=== PATIENT | female | born 1975 | race Caucasian/White ===

== ENCOUNTER 2023-07-10 09:22 | Emergency (ER) | payer SELFPAY ==
[2023-07-10 09:35] VITALS: BP 160/87; PULSE 74; RESP 16; TEMP 36.4; O2SAT 99
--- NOTE | 2023-07-10 09:39 | ED.URI ---
HPI - URI/Sore Throat General Chief Complaint: Upper Respiratory Infection Stated Complaint: Poss sinus infection Time Seen by Provider: 07/10/23 09:40 Source: patient and RN notes reviewed Mode of arrival: ambulatory Limitations: no limitations History of Present Illness HPI Narrative: 48-year-old female presented for complaint of sinus congestion and drainage, bilateral ear pressure, headache, and cough. Onset 2 weeks. She endorses temporary improvement in symptoms a few days ago. She has been taking Zyrtec, Benadryl, DayQuil and NyQuil, Flonase and nasal rinse. Endorses sinus infections usually with the change of seasons. MD elicited complaint: cough Related Data Home Medications Medication Instructions Recorded Confirmed levothyroxine 25 mcg tablet 25 mcg PO DAILY 03/10/19 07/10/23 bupropion HCl 150 mg 24 hr tablet, mg PO 07/10/23 extended release Allergies Allergy/AdvReac Type Severity Reaction Status Date / Time Penicillins Allergy Unknown Unknown Verified 07/10/23 09:34 peanut Allergy Anaphylaxis Verified 07/10/23 09:34 Review of Systems Review of Systems: CONSTITUTIONAL: Endorses malaise, denies chills, sweats, fever EYES: Denies visual changes, redness, or discharge ENT: Reports rhinorrhea, congestion, sinus pain, otalgia, sore throat CARDIOVASCULAR: Denies chest pain, palpitations, edema RESPIRATORY: Reports cough, post nasal drainage. Denies dyspnea GASTROINTESTINAL: Denies abdominal pain, nausea, vomiting, diarrhea SKIN: Denies rash or itching MUSCULOSKELETAL: denies myalgia PMFSH Past Medical History Medical History delivery delivered (~07/04/08) delivery delivered (~06/07/11) delivery delivered (~1993) Osteoarthritis of knee Rheumatoid arthritis Surgical History Surgical History Previous back surgery Family History Family History Grandparent Diabetes mellitus Social History Social History Smoking status: Never smoker Alcohol intake: never Exam Narrative: GENERAL: mildly Ill-appearing, nontoxic no acute distress. EYES: PERRLA, conjunctivae clear ENT: Mucous membranes moist. TMs pearly martinez with dull light reflex bilaterally; no tragal tenderness. Oropharynx not erythematous without lesions or exudate, no drooling, no hoarseness, no trismus, uvula midline. NECK: Supple. No lymphadenopathy CHEST: Clear to auscultation, breath sounds equal. No wheezing, rhonchi, rales, or stridor. No respiratory distress, speaks in full sentences. HEART: Regular rate and rhythm. No murmur heard. SKIN: Warm, dry, no rash. NEURO: Alert and oriented x3. PSYCH: Normal mood and affect Course Course Emergency Course: Patient is aware of diagnosis, understands and agrees to treatment plan. Anticipatory guidance given. Patient agrees to follow-up as directed and is aware of reasons to seek care at the emergency department. Portions of this record may have been created with voice recognition software Level of Care: Express Care Visit Vital Signs Vital signs: Vital Signs Temperature 97.6 F 07/10/23 09:35 Pulse Rate 74 07/10/23 09:35 Respiratory Rate 16 07/10/23 09:35 Blood Pressure 160/87 H 07/10/23 09:35 Pulse Oximetry 99 07/10/23 09:35 Oxygen Delivery Room Air 07/10/23 09:35 Temperature 97.6 F 07/10/23 09:35 Pulse Rate 74 07/10/23 09:35 Respiratory Rate 16 07/10/23 09:35 Blood Pressure 160/87 H 07/10/23 09:35 Pulse Oximetry 99 07/10/23 09:35 Oxygen Delivery Room Air 07/10/23 09:35 reviewed MDM - URI/Sore Throat MDM Narrative Medical decision making narrative: Discussed physical exam findings. Treatment for bacterial sinusitis. Advised supportive measures and signs/symptoms
== END 2023-07-10 10:00 | disposition home or self-care (01) ==
PROVIDERS: Emergency Provider Nurse Practitioner Family
DX: J32.9 Chronic sinusitis, unspecified (principal); M06.9 Rheumatoid arthritis, unspecified
CPT/HCPCS: 99213; G0463

== ENCOUNTER 2024-07-05 13:45 | Inpatient (IN) | payer SELFPAY ==
[2024-07-05] VITALS (10 sets, daily range): BP systolic 139–217; BP diastolic 79–131; PULSE 80–101; RESP 16–22; TEMP 36.2–36.5; O2SAT 95–100; BMI 34.0; BMI 38.0
--- NOTE | ~2024-07-05 | CT_ITS ---
EXAMINATION: CTA brain carotid DATE: 07/05/2024 16:10 INDICATION: acute infarct TECHNIQUE: Computed tomographic angiography (CTA) of the head and neck was performed with 100 mL Omni paque-350 intravenous contrast. Automated exposure control and iterative reconstruction technique wer e employed. The dose-length product was 1121.75 mGy-cm. Maximum intensity projection and volume rende red 3D-reconstructions were created by the technologist on a separate workstation. COMPARISON: CT brain, same date. FINDINGS: CTA HEAD: No large vessel occlusion, aneurysm, high flow vascular malformation, nidus or extravasation. Focal p arenchymal hypoenhancement in the left posterior frontal lobe. Patent cerebral veins CTA NECK: Aortic arch and proximal great vessels: Normal arch anatomy. Calcified lymph nodes. Right common carotid, carotid bifurcation, and internal carotid artery: No plaque.There is 0% stenosi s of the proximal right internal carotid artery relative to normal distal artery lumen diameter (NASC ET criteria). Left common carotid, carotid bifurcation, and internal carotid artery: No plaque.There is 0% stenosis of the proximal left internal carotid artery relative to normal distal artery lumen diameter (NASCET criteria). Vertebral arteries: No significant plaque or stenosis. Vertebral arteries co-dominant. Other findings: None. IMPRESSION: No large vessel intracranial occlusion, high-grade intracranial stenosis, or aneurysm. No carotid or vertebral artery occlusion, dissection, or significant stenosis. Reviewed, dictated and finalized at location K. IMPRESSION: No large vessel intracranial occlusion, high-grade intracranial stenosis, or an eurysm. No carotid or vertebral artery occlusion, dissection, or significant stenosis.
--- NOTE | ~2024-07-05 | CT_ITS ---
EXAMINATION: CT brain wo con DATE: 07/05/2024 15:19 INDICATION: AMS . TECHNIQUE: Computed tomography (CT) of the head was performed without intravenous contrast. The mA wa s adjusted according to patient size. Iterative reconstruction technique was employed. The dose-lengt h product was 605.33 mGy-cm. COMPARISON: None. FINDINGS: No acute intracranial hemorrhage or extra-axial fluid collection. No hydrocephalus, mass, or herniation. Focal area of left posterior frontal lobe parenchymal hypodensity with loss of martinez-white differentia tion. Unremarkable dural venous sinus attenuation. No acute osseous abnormality. Left maxillary retention cyst/polyp, the remaining aerated spaces are clear. IMPRESSION: Focal acute left posterior frontal lobe infarct. Results reported telephonically to Thao Markham PA-C by Dr. Rene at 3:33 PM on 07/05/2024. Reviewed, dictated and finalized at location K. IMPRESSION: Focal acute left posterior frontal lobe infarct. Results reported telephonically to Thao Markham PA-C by Dr. Rene at 3:33 PM o n 07/05/2024.
--- NOTE | ~2024-07-05 | MR_ITS ---
EXAMINATION: MR brain/brain stem wo/w con DATE: 07/06/2024 09:06 INDICATION: Acute stroke TECHNIQUE: Magnetic resonance imaging (MRI) of the brain and brainstem was performed without and with 15 mL Multihance intravenous contrast. Sequences included sagittal and axial T1-weighted SE, axial d iffusion-weighted FS SE, axial 3D SWAN, axial T2-weighted FLAIR, and axial T2-weighted FSE. Postcontr ast axial and coronal T1-weighted SE was obtained. Apparent diffusion coefficient (ADC) maps were cre ated. COMPARISON: None. FINDINGS: There is a region of restricted diffusion and increased T2 signal corresponding to the region of cyto toxic edema seen in the posterior left frontal lobe on the prior CT consistent with acute infarct. Th ere is associated luxury perfusion with subtle increased tiny enhancing vessels in the region of the infarct. No other acute infarcts identified. No intracranial hemorrhage or abnormal intracranial mass lesion. There are no intraparenchymal signal abnormalities seen on the other pulse sequences. The ve ntricles are symmetric and normal in size with normal anatomic variant cavum septum pellucidum et marcellus gae. There are no abnormal extra-axial fluid collections. Flow voids are seen in the cerebral arterie s on the T2-weighted sequences consistent with their expected patency. Visualized orbits and soft tis sues are unremarkable. Secondary luxury perfusion at the region of infarct there are no areas of abno rmal enhancement on the post contrast images. IMPRESSION: 1. Small acute infarct in the posterior left frontal lobe. Reviewed, dictated and finalized at location A.
--- OUTSIDE RECORDS SUMMARY | 2024-07-05 13:48 | XMS_ITS | Clinical Summary ---
Author Organization [facility] Address [address] [place] [address] Care Team Providers Care Commercial Real Estate Associate Name Role Phone Neftaly Elliott MD Primary Care Provider [phone] Allergies Active Allergy Reactions Criticality Noted Date Comments Peanut (Diagnostic) Anaphylaxis High 07/04/2024 Penicillins Unknown 07/04/2024 Medications levothyroxine (SYNTHROID) 25 MCG tablet Take 1 tablet (25 mcg total) by mouth every morning. 04/18/2024 Active Encounters Date Type Department Care Team Description 07/04/2024 9:17 PM CDT - 07/04/2024 10:50 PM CDT Emergency [facility] Emergency Services [address] [place] [address] [address] Garcia, Stress; Psychiatric Problem Discharge Disposition: Home or Self Care (Routine Discharge) 07/04/2024 Travel 05/08/2024 8:15 AM ENTRY EXAMINER - 05/08/2024 11:59 PM ENTRY EXAMINER Hospital Encounter [facility] Mammography [address] [place] [address] Jah Faria MD Discharge Disposition: Home or Self Care (Routine Discharge) 05/08/2024 Travel from Last 3 Months Family History Medical History Relation Comments Breast Cancer Maternal Aunt Breast Cancer Other Relation Status Comments Maternal Aunt Other Alive Social History Tobacco Use Types Packs/Day Years Used Date Smoking Tobacco: Never Smokeless Tobacco: Never Tobacco Cessation:Counseling Given: Not Answered Alcohol Use Standard Drinks/Week Comments Never 0 (1 standard drink = 0.6 oz pur e alcohol) Comments No Sex and Gender Information Value Date Recorded Sex Assigned at Female 05/01/2024 12:53 PM ENTRY EXAMINER Legal Sex Female 4:08 PM CDT Gender Identity Not on file Sexual Orientation Not on file Last Filed Vital Signs Vital Sign Reading Time Taken Comments Blood Pressure 191/94 07/04/2024 10:46 PM CDT Pulse 76 07/04/2024 10:46 PM CDT Temperature 36.7 C (98 F) 07/04/2024 9:25 PM CDT Respiratory Rate 18 07/04/2024 9:25 PM CDT Oxygen Saturation 98% 07/04/2024 9:25 PM CDT Inhaled Oxygen Concentration - - Weight 99.8 kg (220 lb) 07/04/2024 9:59 PM CDT Height 175.3 cm (5' 9 ) 07/04/2024 9:59 PM CDT Body Mass Index 32.49 07/04/2024 9:59 PM CDT Plan of Treatment Health Maintenance Due Date Last Done Comments Cervical Cancer Screening Pap Smear (Age 30 to 64) Every 3 Years 1977 Colorectal Cancer Screening Colonoscopy (10 Years) 1977 Annual Physical 1980 Hepatitis B Vaccines (1 of 3 - 19+ 3-dose series) 1996 DTaP, Tdap and Td Vaccines (2 - Td or Tdap) 05/23/2021 05/24/2011 Cervical Cancer Screening Pap with HPV Testing (Age 30 to 64) Every 5 Years 08/21/2022 08/21/2017 Cervical Cancer Screening with HPV 08/21/2022 COVID-19 Vaccine ( season) 2023 07/28/2021, 02/18/2021, 06/30/2020, Additional history exists Mammogram Screening 05/08/2026 05/08/2024, 05/23/2023, 04/22/2023, Additional history exists Hepatitis C Completed 01/15/2018 Meningococcal B Vaccine Aged Out No l onger eligible based on patient's age to complete this topic Meningococcal Vaccine Aged Out No mary zahra eligible based on patient's age to complete this topic Pneumococcal Vaccine: Pediatrics (0 to 5 Years) and At-Risk Patients (6 to 49 Years) Aged Out No longer eligible based on patient's age to complete this topic RSV Immunizations Under 20 Months Aged Out No longer eligible based on patient's age to complete this topic Procedures Procedure Name Priority Date/Time Associated Diagnosis Comments MG SCREENING W ALICIA THERESA DIGI Routine 05/08/2024 8:47 AM ENTRY EXAMINER Encounter for screening mammogram for malignant neoplasm of breast HEPATITIS C ANTIBODY Routine 01/15/2018 5:18 PM CDT HPV MRNA E6/E7 Routine 08/21/2017 4:54 PM CDT from Last 3 Months or Most Recently Relevant to Health Maintenance Results * MG SCREENING W ALICIA THERESA DIGI (05/08/2024 8:47 AM ENTRY EXAMINER) Anatomical Region Laterality Modality Breast Bilateral Mammography 05/08/2024 10:3 1 AM ENTRY EXAMINER Impressions 05/08/2024 10:38 AM ENTRY EXAMINER ===== IMPRESSION: ===== 1. Stable mammographic appearance with no new findings to suggest malignancy in either breast. Assessment: ACR BI-RADS 1 - NEGATIVE Recommendation: 1:Routine Screening Bilateral Comments: Ordered By: JAH FARIA Interpreted By: Abdi Larson, 05/08/2024 10:31 AM Narrative 05/08/2024 10:38 AM ENTRY EXAMINER [address] [place] [address] EXAMINATION: Digital bilateral screening mammogram with 3-D tomosynthesis EXAM DATE/TIME: 05/08/2024 8:35 AM REASON FOR EXAM: Screening Breast carcinoma in maternal aunt at unknown age. COMPARISON: 02/19/2022. 04/22/2023 Technique: Digital screening mammography of both breasts was performed in addition to 3-D Tomosynthesis technique. This study was read with the assistance of a computer-aided detection system. Tissue density: There are scattered areas of fibroglandular density. Findings: There is no new focal asymmetry, dominant mass lesion, area of skin thickening, or cluster of suspicious appearing calcifications in either breast to suggest malignancy. Jah Faria MD MAMMO Final Resul t * HEPATITIS C ANTIBODY (01/15/2018 5:18 PM CDT) Pathologist [facility] HEPATITIS C AB NON-REACTI VE NON-REACTI VE 01/16/2018 3:01 PM CDT [facility] SERUM OR PLASMA SPECIMEN / Unknown 01/15/2018 5:18 PM CDT 01/15/2018 6:34 PM CDT Generic Conversion Md [facility] Final R esult [facility] [address] [place] [address], * HPV MRNA E6/E7 (08/21/2017 4:54 PM CDT) Pathologist [facility] HPV MRNA E6/E7 Not Detected NOT DETECTED 08/24/2017 3:11 PM CDT Local Plant Source TALIA SPENCER Comment: This test was performed using the APTIMA(R) HPV Assay([employer]This assay detects E6/E7 viral messenger RNA (mRNA)from 14 high-risk HPV types (16,18,31,33,35,39,45,51,52,56,58,59,66,68).For additional information please refer to:http://education.Trover.MyScreen/faq/CKO850i3(This link is being provided for informational/educational purposes only.)The analytical performance characteristics of thisassay have been determined by [employer] [place], [place]. The modificationshave not been cleared or approved by the FDA. Thisassay has been validated pursuant to the CLIAregulations and is used for clinical purposes.Test Performed by [facility],[address] [place] [id number] Dodge M.D., Ph.D., Director of [phone], [facility] [id number] FLUID SPECIMEN / Unknown 08/21/2017 4:54 PM CDT 08/21/2017 4:54 PM CDT us Generic Conversion Md [facility] NITZA WOOD Final Result Performing Organization Address City/State/[facility] Phone Number Local Plant Source [facility] [address] [place] [address], [place] [phone] from Last 3 Months or Most Recently Relevant to Health Maintenance Care Teams Commercial Real Estate Associate Relationship Specialty Start Date End Date Neftaly Elliott MD [address] [place] [address] PCP - General FAMILY PRACTICE 09/01/18
--- OUTSIDE RECORDS SUMMARY | 2024-07-05 13:48 | XMS_ITS | Encounter Summary ---
Author Organization [facility] Address [address] [place] [address] Care Team Providers Care Gravity Prospecting Operator Name Role Phone Neftaly Elliott MD Primary Care Provider [phone] Encounter Details Date Type Department Care Team (Latest Contact Info) Description 07/04/2024 Travel Social History Tobacco Use Types Packs/Day Years Used Date Smoking Tobacco: Never Smokeless Tobacco: Never Alcohol Use Standard Drinks/Week Comments Never 0 (1 standard drink = 0.6 oz pur e alcohol) Comments No Sex and Gender Information Value Date Recorded Sex Assigned at Female 05/01/2024 12:53 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 Wish to be (Past 1 Month) No 07/04/2024 9:54 PM CDT Marizol Woodard RN Active 2. Non-Specific Active Suicidal Thoughts (Past 1 Month) No 07/04/2024 9:54 PM CDT Marizol Woodard RN Active 6. Suicidal Behavior (Lifetime) No 07/04/2024 9:54 PM CDT Marizol Woodard RN Active documented as of this encounter Plan of Treatment Not on file documented as of this encounter Visit Diagnoses Not on filedocumented in this encounter Care Teams Gravity Prospecting Operator Relationship Specialty Start Date End Date Neftaly Elliott MD [address] [place] [address] PCP - General FAMILY PRACTICE 09/01/18 documented as of this encounter
--- OUTSIDE RECORDS SUMMARY | 2024-07-05 13:48 | XMS_ITS | Clinical Summary ---
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 Gender Identity Not on file Sexual Orientation Not on file Plan of Treatment Health Maintenance Due Date Last Done Comments Hepatitis C Virus (HCV) Screening 1977 TdaP Immunization 1977 Hepatitis B Immunization (1 of 3 - 19+ 3-dose series) 1996 Pap Smear 1998 Cervical Cancer Screening (CCS) 2007 HPV/Cotest 2007 Discussion re Starting/Frequ ency of Mammograms 2017 Colonoscopy 2022 Colorectal Cancer Screening 2022 Influenza Immunization (#1) 2023 SARS-COV-2 Immunization ( season) 2023 Respiratory Syncytial Virus (RSV) Immunization (Adult) (1 - 1-dose 75+ series) 2052 Meningococcal Immunization (ACWY) Aged Out No longer eligible based on patient's age to complete this topic Pneumococcal Immunization Combined Aged Out No longer eligible based on patient's age to complete this topic Rotavirus Immunization Aged Out No lo nger eligible based on patient's age to complete this topic
--- OUTSIDE RECORDS SUMMARY | 2024-07-05 13:48 | XMS_ITS | Encounter Summary ---
Author Organization [facility] Address [address] [place] [address] Care Team Providers Care Metal Molder Name Role Phone Neftaly Elliott MD Primary Care Provider [phone] Reason for Visit * Reason Comments Stress Psychiatric Problem Encounter Details Date Type Department Care Team (Late st Contact Info) Description 07/04/2024 9:17 PM CDT - 07/04/2024 10:50 PM CDT Emergency [facility] Emergency Services [address] [place] [address] [place] [address] Lane Kraus, DO [address] [place] [id number] Stress; Psychiatric Problem Discharge Disposition: Home or Self Care (Routine Discharge) Social History Tobacco Use Types Packs/Day Years Used Date Smoking Tobacco: Never Smokeless Tobacco: Never Tobacco Cessation:Counseling Given: Not Answered Alcohol Use Standard Drinks/Week Comments Never 0 (1 standard drink = 0.6 oz pur e alcohol) Comments No Sex and Gender Information Value Date Recorded Sex Assigned at Female 05/01/2024 12:53 PM ASSISTANCE SPECIALIST Legal Sex Female 4:08 PM CDT Gender Identity Not on file Sexual Orientation Not on file documented as of this encounter Last Filed Vital Signs Vital Sign Reading [...] Mass Index 32.49 07/04/2024 9:59 PM CDT documented in this encounter Functional Status * Calculated C-SSRS Risk Score (Lifetime/Recent) Answer Date of Assessment Author Status No Risk Indicated 07/04/2024 9:54 PM CDT Marizol Woodard RN Active * [place] Suicide Severity Rating Scale (Screener/Recent Self-Report) Question [...] RN Active documented as of this encounter Discharge Instructions * Attachments The following attachments cannot be sent through Care Everywhere. * Coping with stress (Citizen [place]) documented in this encounter Medications at Time of Discharge levothyroxine (SYNTHROID) 25 MCG tablet Take 1 tablet (25 mcg total) by mouth every morning. 04/18/2024 documented as of this encounter ED Notes * Marizol Woodard RN - 07/04/2024 10:50 PM CDT Calm et cooperative with staff et care, no acute distress at discharge, a/o x3 * Marizol Woodard RN - 07/04/2024 10:19 PM CDT Drinking water et conversant with friends in room, calm * Marizol Woodard RN - 07/04/2024 9:45 PM CDT Here for evaluation at this time with c/o I just can't function pt tearful et anxious upon arrival to er, brought by friends alexys after having a panic attack/breatkdown after a hinduism service this evening, pt friend reports ongoing difficult divorce past couple years, increased stress r/t from her x2 children et work, difficulty sleeping, losing insurance et sig decrease in being able to function , family friend reports significant worsening in overall mental health from stress et anxiety, pt has difficulty concentrating et answering intake questions from rn, pt adamently denies SI etHI, no pmd, receives care yearly through obgyn * Lane Kraus, - 07/04/2024 9:[address] PM CDT [facility] Emergency Department Note Chief Complaint Chief Complaint Patient presents with Stress Psychiatric Problem History of Present Illness Ms. Peck presents to the emergency department accompanied by a friend after experiencing difficulty with recall while at hinduism this evening. Yesterday, she had similar symptoms which she attributed to severe stress related to marital discord and her teenage daughters. While at [facility], a friend made a comment which threw her into a panic attack which was followed by delayed responsiveness to questions. This caused her friends to be concerned and they bring her to the emergency department for evaluation. Ms. Peck denies any life stressors except for family related issues. She is currently undergoing a divorce. She is seeing a counselor every other week at [facility] and she feels this is helpful. She has an extensive network of friends who monitor her and support her on a regular basis. Ms. Peck denies any financial strain, work-related stress, or other stressors. She denies any thoughts of self-harm or harm to others. Medical History ALLERGIES: Review of patient's allergies indicates: Allergen Reactions Peanut (Diagnostic) Anaphylaxis Penicillins Unknown MEDICATIONS: Prior to Admission medications Medication Sig Start Date End Date Taking? Authorizing Provider levothyroxine (SYNTHROID) 25 MCG tablet Take 1 tablet (25 mcg total) by mouth every morning. 04/18/24 Yes Default History Genericprovider PAST MEDICAL HISTORY: Past Medical History: Diagnosis Date Disease of thyroid gland Dyslexia PAST SURGICAL HISTORY: Past Surgical History: Procedure Laterality Date SECTION X2 FAMILY HISTORY: Family History Problem Relation Name Age of Onset Breast Cancer Maternal Aunt Breast Cancer Other cousin SOCIAL HISTORY: Social History Tobacco Use Smoking status: Never Smokeless tobacco: Never Substance Use Topics Alcohol use: Never Drug use: Never Review of Systems Review of Systems Psychiatric/Behavioral: Positive for decreased concentration and dysphoric mood. The patient is nervous/anxious. Physical Exam Filed Vitals: 07/04/24 2125 07/04/24 2159 BP: (!) 175/150 Pulse: 90 Resp: 18 Temp: 98 ??F (36.7 ??C) TempSrc: Temporal SpO2: 98% Weight: 99.8 kg (220 lb) Height: 1.753 m (5' 9 ) Physical Exam Vitals and nursing note reviewed. Constitutional: General: She is not in acute distress. Appearance: She is not ill-appearing or toxic-appearing. HENT: Head: Normocephalic and atraumatic. Nose: Nose normal. Cardiovascular: Rate and Rhythm: Normal rate. Pulmonary: Effort: Pulmonary effort is normal. Musculoskeletal: General: Normal range of motion. Cervical back: Normal range of motion. Skin: General: Skin is warm. Neurological: Mental Status: She is alert. Psychiatric: Attention and Perception: Attention normal. Mood and Affect: Affect is blunt. Speech: Speech normal. Behavior: Behavior normal. Behavior is cooperative. Thought Content: Thought content normal. Cognition and Memory: Cognition normal. Judgment: Judgment normal. Diagnostic Studies / Procedures ELECTROCARDIOGRAMS: No results found for this visit on 07/04/24. LABORATORY STUDIES: No results found for this visit on 07/04/24. IMAGING STUDIES No orders to display ED Course / Medical Decision Making Medical Decision Making Vital signs reviewed-hypertension noted disease (asymptomatic). She is nontoxic and well-hydrated appearing. Physical exam is unremarkable. Extensive interview and discussion in the emergency department in the presence of a close friend. She has no SI or HI and her responsiveness to questions improved with time in the emergency department. Recall is slightly delayed, however there is no confusion. Distraction techniques and redirection techniques were reviewed with her in the emergency department to cope with life stressors. Due to her return to baseline following a panic attack she was discharged in good stable condition in the custody of family and friends. She was encouraged to continue therapy with [facility]. She is advised to return the emerged part for any sudden change in current condition. Amount and/or Complexity of Data Reviewed Independent Historian: friend Medications - No data to display Clinical Impression Acute fugue state due to acute stress reaction (Primary) Current Discharge Medication List Disposition: Discharge Follow-Up: Neftaly Elliott MD [address] [place] [id number] KRAUS DO 07/04/2024 Lane Kraus DO 07/04/24 2237 documented in this encounter Plan of Treatment Not on file documented as of this encounter Visit Diagnoses Diagnosis Acute fugue state due to acute stress reaction- Primary Predominant disturbance of consciousness as reaction to stress documented in this encounter Care Teams Metal Molder Relationship Specialty Start Date End Date Neftaly Elliott MD [address] [place] [id number] PCP - General FAMILY PRACTICE 09/01/18 documented as of this encounter
--- NOTE | 2024-07-05 14:06 | ECG_ITS ---
Test Date: 2024-07-05 14:41:36 Measurements Intervals [place] Rate: 79 P: 48 CA: 185 QRS: -8 QRSD: 91 T: 26 QT: 353 QTc: 406 Interpretive Statements SINUS RHYTHM VOLTAGE CRITERIA FOR LVH BORDERLINE R WAVE PROGRESSION, ANTERIOR LEADS BASELINE ARTIFACT- I, II, III, AVR, AVL, AVF BORDERLINE ECG No previous ECG available for comparison Electronically Signed On 07-05-2024 14:52:30 CDT by Anupam Coreas D.O.
--- OUTSIDE RECORDS SUMMARY | 2024-07-05 14:12 | XMS_ITS | Clinical Summary ---
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
--- OUTSIDE RECORDS SUMMARY | 2024-07-05 14:12 | XMS_ITS | Clinical Summary ---
Author Organization [facility] Address [address] [place] [address] Care Team Providers Care Tunnel Kiln Repairer Name Role Phone Neftaly Elliott MD Primary Care Provider [phone] Allergies Active Allergy Reactions Criticality Noted Date Comments Peanut (Diagnostic) Anaphylaxis High 07/04/2024 Penicillins Unknown 07/04/2024 Medications levothyroxine (SYNTHROID) 25 MCG tablet Take 1 tablet (25 mcg total) by mouth every morning. 04/18/2024 Active Encounters Date Type Department Care Team Description 07/04/2024 9:17 PM CDT - 07/04/2024 10:50 PM CDT Emergency [facility] Emergency Services [address] [place] [address] Lane Garcia, Stress; Psychiatric Problem Discharge Disposition: Home or Self Care (Routine Discharge) 07/04/2024 Travel 05/08/2024 8:15 AM PHYSICAL THERAPIST CLINIC DIRECTOR - 05/08/2024 11:59 PM PHYSICAL THERAPIST CLINIC DIRECTOR Hospital Encounter [facility] Mammography [address] [place] [address] Jah Faria MD Discharge Disposition: Home or [...] Sex Assigned at Female 05/01/2024 12:53 PM PHYSICAL THERAPIST CLINIC DIRECTOR Legal Sex Female 4:08 PM CDT Gender [...] ALICIA THERESA DIGI Routine 05/08/2024 8:47 AM PHYSICAL THERAPIST CLINIC DIRECTOR Encounter for screening mammogram for malignant neoplasm of breast HEPATITIS C ANTIBODY Routine 01/15/2018 5:18 PM CDT HPV MRNA E6/E7 Routine 08/21/2017 4:54 PM CDT from Last 3 Months or Most Recently Relevant to Health Maintenance Results * MG SCREENING W ALICIA THERESA DIGI (05/08/2024 8:47 AM PHYSICAL THERAPIST CLINIC DIRECTOR) Anatomical Region Laterality Modality Breast Bilateral Mammography 05/08/2024 10:3 1 AM PHYSICAL THERAPIST CLINIC DIRECTOR Impressions 05/08/2024 10:38 AM PHYSICAL THERAPIST CLINIC DIRECTOR ===== IMPRESSION: ===== 1. Stable mammographic appearance with no new findings to suggest malignancy in either breast. Assessment: ACR BI-RADS 1 - NEGATIVE Recommendation: 1:Routine Screening Bilateral Comments: Ordered By: JAH FARIA Interpreted By: Abdi Larson, 05/08/2024 10:31 AM Narrative 05/08/2024 10:38 AM PHYSICAL THERAPIST CLINIC DIRECTOR [address] [place] [address] EXAMINATION: Digital bilateral screening mammogram with 3-D [...] C ANTIBODY (01/15/2018 5:18 PM CDT) Pathologist [facility] HEPATITIS C AB NON-REACTI VE NON-REACTI VE 01/16/2018 3:01 PM CDT [facility] SERUM OR PLASMA SPECIMEN / Unknown 01/15/2018 5:18 PM CDT 01/15/2018 6:34 PM CDT Generic Conversion Md [facility] Final R esult [facility] [address] [place] [address], * HPV MRNA E6/E7 (08/21/2017 4:54 PM CDT) Pathologist [facility] HPV MRNA E6/E7 Not Detected NOT DETECTED 08/24/2017 3:11 PM CDT [facility] TALIA SPENCER Comment: This test was performed using the APTIMA(R) HPV Assay([employer]This assay detects E6/E7 viral messenger RNA (mRNA)from 14 high-risk HPV types (16,18,31,33,35,39,45,51,52,56,58,59,66,68).For additional information please refer to:http://education.Zoom.AccuRev/faq/IWC285q5(This link is being provided for informational/educational purposes only.)The analytical performance characteristics of thisassay have been determined by [place]. The modificationshave not been cleared or approved by the FDA. Thisassay has been validated pursuant to the CLIAregulations and is used for clinical purposes.Test Performed by [facility],Winestyr Paige [facility],[address] [place] [id number] Dodge M.D., Ph.D., Director of [phone], [facility] [id number] FLUID SPECIMEN / Unknown 08/21/2017 4:54 PM CDT 08/21/2017 4:54 PM CDT us Generic Conversion Md [facility]/CYTOLOGY NITZA WOOD Final Result Performing Organization Address City/State/[facility] Phone Number [facility] [address] [place] [address], [place] [phone] from Last 3 Months or Most Recently Relevant to Health Maintenance Care Teams Tunnel Kiln Repairer Relationship Specialty Start Date End Date Neftaly Elliott MD [address] [place] [id number] PCP - General FAMILY PRACTICE 09/01/18
--- OUTSIDE RECORDS SUMMARY | 2024-07-05 14:12 | XMS_ITS | Encounter Summary ---
Author Organization [facility] Address [address] [place] [address] Care Team Providers Care Cook Short Order Name Role Phone Neftaly Elliott MD Primary Care Provider [phone] Reason for Visit * Reason Comments Stress Psychiatric Problem Encounter Details Date Type Department Care Team (Late st Contact Info) Description 07/04/2024 9:17 PM CDT - 07/04/2024 10:50 PM CDT Emergency [facility] Emergency Services [address] [place] [address] [place] [address] Lane Kraus, DO [address] [place] [address] [phone] Stress; Psychiatric Problem Discharge Disposition: Home or Self Care (Routine Discharge) Social History Tobacco Use Types Packs/Day Years Used Date Smoking Tobacco: Never Smokeless Tobacco: Never Tobacco Cessation:Counseling Given: Not Answered Alcohol Use Standard Drinks/Week Comments Never 0 (1 standard drink = 0.6 oz pur e alcohol) Comments No Sex and Gender Information Value Date Recorded Sex Assigned at Female 05/01/2024 12:53 PM TRAILER PARK MANAGER Legal Sex Female 4:08 PM CDT Gender [...] PM CDT Marizol Woodard RN Active * [place] Suicide Severity Rating Scale (Screener/Recent Self-Report) Question [...] through Care Everywhere. * Coping with stress (Kittitian) documented in this encounter Medications at Time [...] after having a panic attack/breatkdown after a christian service this evening, pt friend reports ongoing [...] Lane Kraus, - 07/04/2024 9:22 PM CDT [facility] Emergency Department Note Chief Complaint Chief Complaint Patient presents with Stress Psychiatric Problem History of Present Illness Ms. Peck presents to the emergency department accompanied by a friend after experiencing difficulty with recall while at christian this evening. Yesterday, she had similar symptoms which she attributed to severe stress related to marital discord and her teenage daughters. While at [facility], a friend made a comment which threw her into a panic attack which was followed by delayed responsiveness to questions. This caused her friends to be concerned and they bring her to the emergency department for evaluation. Ms. Peck denies any life stressors except for family related issues. She is currently undergoing a divorce. She is seeing a counselor every other week at [facility] and she feels this is helpful. She [...] List Disposition: Discharge Follow-Up: Neftaly Elliott MD [address] [place] [id number] KRAUS DO 07/04/2024 Lane Kraus DO 07/04/24 [id number] documented in this encounter Plan of Treatment Not on file documented as of this encounter Visit Diagnoses Diagnosis Acute fugue state due to acute stress reaction- Primary Predominant disturbance of consciousness as reaction to stress documented in this encounter Care Teams Cook Short Order Relationship Specialty Start Date End Date Neftaly Elliott MD [address] [place] [id number] PCP - General FAMILY PRACTICE 09/01/18 documented as of this encounter
--- OUTSIDE RECORDS SUMMARY | 2024-07-05 14:12 | XMS_ITS | Encounter Summary ---
Author Organization [facility] Address [address] [place] [address] Care Team Providers Care Wheel Setter Name Role Phone Neftaly Elliott MD Primary Care Provider [phone] Encounter Details Date Type Department Care Team (Latest Contact Info) Description 07/04/2024 Travel Social History Tobacco Use Types Packs/Day Years Used Date Smoking Tobacco: Never Smokeless Tobacco: Never Alcohol Use Standard Drinks/Week Comments Never 0 (1 standard drink = 0.6 oz pur e alcohol) Comments No Sex and Gender Information Value Date Recorded Sex Assigned at Female 05/01/2024 12:53 PM JELLY MAKER Legal Sex Female 4:08 PM CDT Gender Identity Not on file Sexual Orientation Not on file documented as of this encounter Functional Status * Calculated C-SSRS Risk Score (Lifetime/Recent) Answer Date of Assessment Author Status No Risk Indicated 07/04/2024 9:54 PM CDT Marizol Woodard RN Active * [place] Suicide Severity Rating Scale (Screener/Recent Self-Report) Question [...] on filedocumented in this encounter Care Teams Wheel Setter Relationship Specialty Start Date End Date Neftaly Elliott MD [address] [place] [address] PCP - General FAMILY PRACTICE 09/01/18 documented as of this encounter
--- NOTE | 2024-07-05 14:20 | ED_ITS ---
HPI - Neuro Symptoms/Deficit General Chief Complaint: Neuro Symptoms/Deficit Stated Complaint: Feeling disoriented-having trouble with words Time Seen by Provider: 07/05/24 14:06 Source: patient Mode of arrival: ambulatory Limitations: no limitations History of Present Illness HPI Narrative: This is a 49 year old female that presents to the ER for confusion. Reports since Saturday she has had difficulty finding her words. She felt like she was not able to take her work calls that day as she was so confused. Reports today she noted that her blood pressure was elevated which prompted her to be seen. Denies vision changes, focal numbness, or weakness. Related Data Home Medications ?Medication ?Instructions ?Recorded ?Confirmed ?Last Taken ?Type levothyroxine 25 mcg tablet 25 mcg PO DAILY 03/10/19 07/10/23 Unknown History bupropion HCl 150 mg 24 hr tablet, mg PO 07/10/23 Unknown History extended release Allergies Allergy/AdvReac Type Severity Reaction Status Date / Time Penicillins Allergy Unknown Unknown Verified 07/05/24 13:47 peanut Allergy Anaphylaxis Verified 07/05/24 13:47 Review of Systems 2 Review of Systems: CONSTITUTIONAL: Denies fever EYES: Denies visual changes CARDIOVASCULAR: Denies chest pain RESPIRATORY: Denies dyspnea. GASTROINTESTINAL: Denies vomiting NEUROLOGIC: Denies numbness, or weakness. All systems reviewed & are unremarkable except as noted in HPI and below PMFSH Past Medical History Medical History (Updated 07/05/24 @ 16:39 by Thao Markham PA-C) History of depression History of hypothyroidism Osteoarthritis of knee Rheumatoid arthritis delivery delivered (~1993) delivery delivered (~06/07/11) delivery delivered (~07/04/08) Surgical History Surgical History Previous back surgery Family History Family History Grandparent Diabetes mellitus Social History Social History Smoking status: Never smoker Alcohol intake: never Exam 2 Narrative: GENERAL: Well-appearing, well-nourished, and in no acute distress. HEAD: Normocephalic, atraumatic. EYES: PERRLA and EOMI. ENT: Nares clear, no rhinorrhea or epistaxis. Mucous membranes moist. Oropharynx without tonsillar hypertrophy exudate or other lesions. Bilateral TMs pearly martinez non-bulging NECK: Supple. No adenopathy or masses. CHEST: Clear to auscultation. No respiratory distress. No wheezes rales or rhonchi HEART: Regular rate and rhythm. No murmur heard. Normal peripheral pulses. EXTREMITIES: Normal range of motion. No edema. Strength equal bilateral upper and lower extremities (5/5) SKIN: Warm, dry, no rash. NEURO: No focal deficits. Alert and oriented x3. Cranial nerves 2-12 grossly intact PSYCH: Anxious, tearful Course Course Emergency Course: Patient updated on her workup and need for admission Consultations Consultation #1: Spoke with Dr. Green about patient and workup. Recommend CTA. Lipitor, dual anti-platelet therapy Date: 07/05/24 Consultation #2: Spoke with hospitalist about patient and workup who accepts admission Date: 07/05/24 Vital Signs Vital signs: Vital Signs Temperature 97.2 F L 07/05/24 13:48 Pulse Rate 90 07/05/24 13:48 Respiratory Rate 16 07/05/24 13:48 Blood Pressure 167/100 H 07/05/24 13:48 Pulse Oximetry 100 07/05/24 13:48 Oxygen Delivery Room Air 07/05/24 13:48 Temperature 97.2 F L 07/05/24 13:48 Pulse Rate 89 07/05/24 16:32 Respiratory Rate 16 07/05/24 16:32 Blood Pressure 169/89 H 07/05/24 16:32 Pulse Oximetry 98 07/05/24 16:32 Oxygen Delivery Room Air 07/05/24 14:02 MDM - Neuro Symptoms/Deficit MDM Narrative Medical decision making narrative: Patient presents to the emergency department for word-finding difficulties. Ongoing over the last 2 days. Patient hypertensive upon arrival with systolic blood pressure in the 200s, this down trended without intervention. Systolic blood pressure now in the 160s. No focal deficits noted on exam. CBC and metabolic panel without concerning findings. Urine without evidence of infection. CT brain shows focal acute left posterior frontal lobe infarct. Spoke with Dr. Green about patient and workup. Recommend CTA. Lipitor, dual anti-platelet therapy. Spoke with hospitalist about patient and workup who accepts admission. Patient updated on her workup and need for admission Differential Diagnosis Differential diagnosis: Likely subarachnoid hemorrhage, cerebrovascular accident and other (Anxiety, depression, hypertension, hypertensive urgency) Lab Data Attestation: I reviewed the patient's lab results. 07/05/24 14:36 07/05/24 14:36 Labs: Lab Results 07/05/24 07/05/24 Range/Units 14:34 14:36 WBC 7.4 (4.5-10.0) K/mm3 RBC 4.53 (4.2-5.4) M/mm3 Hgb 12.8 (12.0-15.0) g/dL Hct 39.2 (37.0-47.0) % MCV 86.5 (80-100) fl MCH 28.3 (26-34) pg MCHC 32.7 (32-36) g/dl RDW 13.3 (11.5-14.5) % Plt Count 370 (150-375) k/mm3 MPV 9.3 (7.4-10.4) fl Immature Gran % (Auto) 0.4 (0-0.5) % Neut % (Auto) 55.0 (45.5-73.1) % Lymph % (Auto) 29.3 (18.3-44.2) % [place] % (Auto) 11.6 H (2.6-8.5) % Eos % (Auto) 2.8 (0-4.4) % Baso % (Auto) 0.9 (0.2-1.2) % Lymph # (Auto) 2.17 (0.9-3.2) K/mm3 [place] # (Auto) 0.9 H (0.1-0.6) K/mm3 Eos # (Auto) 0.2 (0-0.3) K/mm3 Baso # (Auto) 0.1 (0.0-0.1) K/mm3 Abs Immat Gran (auto) 0.03 (0.00-0.031) K/mm3 Absolute Neuts (auto) 4.1 (1.3-6.7) K/mm3 Absolute Nucleated RBC 0.000 (0.0-0.012) K/mm3 Nucleated RBC % 0.0 (0.0-0.2) % PT 13.2 (11.1-14.7) Seconds INR 1.0 APTT 26.8 (22.3-36.8) Seconds Sodium 137 (137-145) mmol/L Potassium 3.9 (3.4-5.0) mmol/L Chloride 103 (98-107) mmol/L Carbon Dioxide 26 (22-30) mmol/L Anion Gap 8 (4-12) mmol/L BUN 12 (7-17) mg/dL Creatinine 0.68 L (0.7-1.0) mg/dL Estim Creat Clear Calc 113 ml/min Estimated GFR > 60 (59 - ) Glucose 119 H (65-110) mg/dL Calcium 9.1 (8.4-10.2) mg/dL Total Bilirubin 0.7 (0.2-1.3) mg/dL AST 31 (14-36) U/L ALT 32 (6-35) U/L Alkaline Phosphatase 60 (38-126) U/L Total Protein 8.0 (6.3-8.2) g/dL Albumin 4.4 (3.5-5.1) g/dL Urine Color Yellow (Yellow) Urine Appearance Clear (Clear) Urine pH 7.5 (5.0-9.0) Ur Specific [place] 1.015 (1.001-1.035) Urine Protein Negative (Negative) mg/dL Urine Glucose (UA) Trace H (Negative) mg/dL Urine Ketones Negative (Negative) mg/dL Ur Blood (Man) Negative (Negative) Urine Nitrate Negative (Negative) Urine Bilirubin Negative (Negative) Urine Urobilinogen 0.2 (<2.0) mg/dL Leukocyte Esterase Rfl Negative (Negative) GIGI/UL POC Urine HCG, Qual Negative (Negative) Imaging Data Radiologist's impression: ITS Impressions Head CT 07/05/24 15:28 IMPRESSION: Focal acute left posterior frontal lobe infarct. Results reported telephonically to Thao Markham PA-C by Dr. Rene at 3:33 PM on 07/05/2024. Head/Neck CTA 07/05/24 16:26 IMPRESSION: No large vessel intracranial occlusion, high-grade intracranial stenosis, or aneurysm. No carotid or vertebral artery occlusion, dissection, or significant stenosis. ECG Data EKG #1: ECG completion date: 07/05/24 EKG Interpretation: normal rate, sinus rhythm, no ST changes and normal QT Critical Care Time Critical Care Time Critical Care Time: Yes Total Critical Care Time: 35 Discharge Plan Discharge Clinical Impression: Acute cerebrovascular accident (CVA) Patient Disposition: Still a Patient Condition: Serious Patient Language: Iranian Prescriptions: No Action bupropion HCl 150 mg tablet extended release 24 hr PO azithromycin [Zithromax Z-Bob] 250 mg tablet See Rx Instructions .ROUTE .COMPLEX Qty: 6 0RF Rx Instructions: For 250 mg dose pack: take 500 mg today (day 1), then 250 mg for 4 days (days 2-5) levothyroxine 25 mcg tablet 25 mcg PO DAILY Follow-up/Referrals: PHYSICIAN,WATER CARTER [Primary Care Provider] -
[2024-07-05 14:36] LABS: BEDSIDEPREGUCG Negative (Negative)
[2024-07-05 14:47] LABS: Basophils Absolute Auto 0.1 K/mm3 (0.0-0.1); Basophils Percent Auto 0.9 % (0.2-1.2); Eosinophils Absolute Auto 0.2 K/mm3 (0-0.3); Eosinophils Percent Auto 2.8 % (0-4.4); Hematocrit 39.2 % (37.0-47.0); Hemoglobin 12.8 g/dL (12.0-15.0); Immature Granulocyte Absolute 0.03 K/mm3 (0.00-0.031); Immature Granulocyte Percent A 0.4 % (0-0.5); Lymphocytes Absolute Auto 2.17 K/mm3 (0.9-3.2); Lymphocytes Percent Auto 29.3 % (18.3-44.2); Mean Corpuscular HGB Conc 32.7 g/dl (32-36); Mean Corpuscular Hemoglobin 28.3 pg (26-34); Mean Corpuscular Volume 86.5 fl (80-100); Mean Platelet Volume 9.3 fl (7.4-10.4); Monocytes Absolute Auto 0.9 K/mm3 (0.1-0.6); Monocytes Percent Auto 11.6 % (2.6-8.5); Neutrophils Absolute Auto 4.1 K/mm3 (1.3-6.7); Platelet Count Result 370 k/mm3 (150-375); Red Blood Count 4.53 M/mm3 (4.2-5.4); Red Cell Distribution Width 13.3 % (11.5-14.5); White Blood Count 7.4 K/mm3 (4.5-10.0)
[2024-07-05 14:48] LABS: Add Urine Microscopic? NO; Appearance Urine Clear (Clear); Bilirubin Urine Negative (Negative); Blood Urine Negative (Negative); Color Urine Yellow (Yellow); Glucose Urine UA Trace mg/dL (Negative); Ketones Urine Negative (Negative); Leukocyte Esterase Ur Negative LEU/UL (Negative); Nitrate Urine Negative (Negative); Protein Urine Negative (Negative); Specific Grav Ur 1.015 (1.001-1.035); Urobilinogen Urine 0.2 mg/dL (<2.0); pH Urine 7.5 (5.0-9.0)
[2024-07-05 14:55] LABS: Alanine Aminotransferase 32 U/L (6-35); Albumin Level 4.4 g/dL (3.5-5.1); Alkaline Phosphatase 60 U/L (38-126); Anion Gap 8 mmol/L (4-12); Aspartate Amino Transferase 31 U/L (14-36); Bilirubin,Total 0.7 mg/dL (0.2-1.3); Blood Urea Nitrogen 12 mg/dL (7-17); Calcium 9.1 mg/dL (8.4-10.2); Carbon Dioxide 26 mmol/L (22-30); Chloride 103 mmol/L (98-107); Estimated CRCL calculation 113 ml/min; Estimated Glomerular Filt Rate > 60; Glucose 119 mg/dL (65-110); Potassium 3.9 mmol/L (3.4-5.0); Sodium 137 mmol/L (137-145)
[2024-07-05] MEDS: LORazepam INJ (*CRX) 2 MG/ML VIAL 0.5 MG IV PUSH (14:56)
[2024-07-05 15:04] LABS: Prothrombin Time 13.2 Seconds (11.1-14.7)
[2024-07-05 15:05] LABS: Partial Thromboplastin Time 26.8 Seconds (22.3-36.8)
--- NOTE | 2024-07-05 15:16 | PC.NURSE ---
Pt. to CT.
[2024-07-05] MEDS: ATORVASTATIN 40 MG TABLET PO (16:30)
--- NOTE | 2024-07-05 17:38 | PC.NURSE ---
SHERON Markham at bedside updating pt. and pt. Dad at bedside.
--- NOTE | 2024-07-05 17:50 | PC.NURSE ---
Dinner tray ordered for pt.
--- NOTE | 2024-07-05 18:48 | ADMGEN ---
This patient, Sravan Peck, was admitted to Medical Room 346-01. Patient/family oriented to hospital policies and general routines including ID bracelet, bed and alarms, visiting hours, pain management, procedures, bathroom and other care routines, personal items, smoking policy, room service/diet, and visiting hours. Information on how to activate the Rapid Response Team has been discussed. Patient/Family are encouraged to report perceived risks to care and to ask questions if they do not understand what they are told or what they should do.
--- NOTE | 2024-07-05 19:17 | PM.IMHP ---
H&P: HPI History of Present Illness Date/Time: 07/05/24 19:17 Chief Complaint: Word Finding Difficulty Narrative: 49 y/o F with PMH of rheumatoid arthritis, hypothyroidism, and depression presents here with word-finding difficulty. The patient presents here from home on 07/05 for further evaluation of word-finding difficulty and disorientation. She first developed symptoms on Saturday, 07/03, when she woke with symptoms. Last known well was 07/02. She reports it initially started as difficulty processing words and processing information in general. She then developed word findings difficulty and blurred vision. Blurred vision appears to have improved vs resolved. She denies accompanying focal numbness, focal weakness, ataxia, balance/gait disturbance, or dysarthria. She has no previous history of a CVA, hypertension, smoking, or high cholesterol. Initial VS at presentation: 97.2? F, HR 90, R 16, 167/100, and 100% on RA. ED workup showed: No leukocytosis, no anemia, normal coags, no significant electrolyte derangements, creatinine 0.68 and GFR >60, glucose 119, UA showed trace glucose otherwise unremarkable. Head CT showed a focal acute left posterior frontal lobe infarct. Head/neck CTA showed no large vessel intracranial occlusion, high-grade intracranial stenosis, or aneurysm. No carotid or vertebral artery occlusion, dissection, or significant stenosis. EKG showed sinus rhythm, voltage criteria for LVH, borderline R-wave progression anterior leads (no previous available for comparison). Review of Systems Review of Systems: All systems reviewed & are unremarkable except as noted in HPI and below PMFSH Past Medical History Medical History History of depression History of hypothyroidism Osteoarthritis of knee Rheumatoid arthritis Surgical History Surgical History History of section 1993, 2008, 2011 Previous back surgery Family History Family History Grandparent Diabetes mellitus Social History Social History Smoking status: Never smoker Second hand tobacco smoke exposure: No Alcohol intake: never Substance use type: does not use Do You Feel Safe in your Home?: Yes Lack of Transportation: No Lack of Food: Never True Current Housing: I Have Housing Concerned About Future Housing: No Difficulty Paying Gas/Electric Bills: No Difficulty Paying for Meds: No Currently Unemployed: No Education: Associate Degree Difficulty w/ Childcare or Family Care: No Spiritual care concerns: Yes (Muslim - no blood products) Meds Home Medications and Allergies Home Medications ?Medication ?Instructions ?Recorded ?Confirmed ?Type levothyroxine 25 mcg tablet 25 mcg PO DAILY 03/10/19 07/05/24 History bupropion HCl 100 mg tablet 150 mg PO DAILY 07/05/24 07/05/24 History cetirizine 10 mg capsule (All Day 10 mg PO DAILY PRN allergy 07/05/24 07/05/24 History Allergy (cetirizine)) omeprazole 20 mg capsule,delayed 20 mg PO DAILY heartburn/reflux 07/05/24 07/05/24 History release Allergies Allergy/AdvReac Type Severity Reaction Status Date / Time Penicillins Allergy Unknown Unknown Verified 07/05/24 13:47 peanut Allergy Anaphylaxis Verified 07/05/24 13:47 Vital Signs Vital Signs - 24 hr 07/05/24 13:48 07/05/24 14:02 07/05/24 14:02 Temperature 97.2 F L Pulse Rate 90 89 Respiratory Rate 16 16 Blood Pressure 167/100 H 217/131 H Pulse Oximetry 100 98 Oxygen Delivery Room Air Room Air 07/05/24 14:57 07/05/24 15:42 07/05/24 16:32 Temperature Pulse Rate 89 86 89 Respiratory Rate 22 H 16 16 Blood Pressure 161/107 H 167/85 H 169/89 H Pulse Oximetry 99 96 98 Oxygen Delivery 07/05/24 17:19 07/05/24 18:23 07/05/24 18:53 Temperature 97.7 F Pulse Rate 86 101 H 80 Respiratory Rate 16 16 16 Blood Pressure 148/87 H 139/95 H 142/79 H Pulse Oximetry 98 95 97 Oxygen Delivery Exam Const: General: comfortable and no acute distress Other: , female, nontoxic appearance HENMT: Face/Nose/Sinus: Normal nares present Mouth: Yes moist mucous membranes Eyes: General: appearance normal, both eyes and all related structures Sclera: sclerae normal Pupils: Equal, round and reactive pupils present EOM: EOMs intact bilaterally Resp: Effort & Inspection: normal respiratory effort Auscultation: clear to auscultation bilaterally Cardio: Rate: regular rate Rhythm: regular rhythm Other: S1-S2 present without murmur, rub, ectopy GI: Other: Abdomen soft, nondistended, nontender. Normoactive bowel sounds in all quadrants. Skin: General skin exam: normal color and no rashes or lesions noted Wounds: no wounds Neuro: Other: +expressive aphasia, very mild. More so presenting as delay in processing, slower speech hilda. No facial droop, focal weakness, focal numbness on exam. EOM intact. +5 in all extremities. Extrem: General: normal to inspection Psych: Mental Status: mental status grossly normal Affect: normal affect Other: Good insight and judgment, very pleasant H&P: Results Labs Labs: Short CBC 07/05/24 Range/Units 14:36 WBC 7.4 (4.5-10.0) K/mm3 Hgb 12.8 (12.0-15.0) g/dL Hct 39.2 (37.0-47.0) % Plt Count 370 (150-375) k/mm3 BMP 07/05/24 14:36 Sodium 137 Potassium 3.9 Chloride 103 Carbon Dioxide 26 BUN 12 Creatinine 0.68 L Glucose 119 H Calcium 9.1 Liver Function 07/05/24 Range/Units 14:36 Total Bilirubin 0.7 (0.2-1.3) mg/dL AST 31 (14-36) U/L ALT 32 (6-35) U/L Alkaline Phosphatase 60 (38-126) U/L Albumin 4.4 (3.5-5.1) g/dL Urine 07/05/24 Range/Units 14:36 Urine Color Yellow (Yellow) Urine Appearance Clear (Clear) Urine pH 7.5 (5.0-9.0) Ur Specific [place] 1.015 (1.001-1.035) Urine Protein Negative (Negative) mg/dL Urine Glucose (UA) Trace H (Negative) mg/dL Assessment and Plan Assessment and plan (1) Acute cerebrovascular accident (CVA): Code(s): I63.9 - Cerebral infarction, unspecified Status: Acute Assessment and Plan: New deficits of word-finding difficulty and confusion starting on Saturday, 07/03, upon awakening. LKW on 07/02. - admission for observation and telemetry - not candidate for thrombolytics or thrombectomy, time frame and no large vessel occlusion seen on CT - head CT:Focal acute left posterior frontal lobe infarct. - head/neck CTA: No large vessel intracranial occlusion, high-grade intracranial stenosis, or aneurysm. No carotid or vertebral artery occlusion, dissection, or significant stenosis. - neurology consulted - check brain MRI and echo w/Bubble - neuro checks Q4 - speech/swallow eval, PT/OT eval - monitor daily labs, check lipid panel, TSH, and A1C - start Atorvastatin 40 mg PO, Plavix 75 mg PO, ASA 81 mg - consider 30 day event monitoring at discharge Plan Diet: Heart healthy GI Prophylaxis: Not currently indicated DVT Prophylaxis: SCDs Lines: Peripheral Code Status: Full code Quality VTE Prophylaxis VTE prophylaxis: mechanical ordered Hospitalist MIPS Advance Care Plan I have confirmed that the patient's Advanced Care Plan is present, code status is documented, or surrogate decision maker is listed in patient medical record.: Yes Medication Reconciliation I have utilized all available resources to obtain, update and review the patients current medications (includes all prescriptions, OTC, herbals, cannabis, and nutritional supplements).: Yes
[2024-07-06] VITALS (10 sets, daily range): BP systolic 117–153; BP diastolic 60–90; PULSE 60–98; RESP 16–20; TEMP 36.1–36.4; O2SAT 98–100
[2024-07-06] MEDS: ONDANSETRON INJ 4 MG/2 ML VIAL IV PUSH (01:22)
[2024-07-06] MEDS: LEVOTHYROXINE SODIUM 25 MCG TABLET PO (05:39)
[2024-07-06 05:46] LABS: Basophils Absolute Auto 0.1 K/mm3 (0.0-0.1); Basophils Percent Auto 0.4 % (0.2-1.2); Eosinophils Percent Auto 0.3 % (0-4.4); Hematocrit 40.6 % (37.0-47.0); Hemoglobin 12.8 g/dL (12.0-15.0); Immature Granulocyte Absolute 0.05 K/mm3 (0.00-0.031); Immature Granulocyte Percent A 0.4 % (0-0.5); Lymphocytes Absolute Auto 1.11 K/mm3 (0.9-3.2); Mean Corpuscular HGB Conc 31.5 g/dl (32-36); Mean Corpuscular Hemoglobin 28.1 pg (26-34); Mean Corpuscular Volume 89.2 fl (80-100); Mean Platelet Volume 9.2 fl (7.4-10.4); Monocytes Percent Auto 7.2 % (2.6-8.5); Neutrophils Absolute Auto 11.6 K/mm3 (1.3-6.7); Neutrophils Percent Auto 83.7 % (45.5-73.1); Platelet Count Result 351 k/mm3 (150-375); Red Blood Count 4.55 M/mm3 (4.2-5.4); Red Cell Distribution Width 13.5 % (11.5-14.5); White Blood Count 13.9 K/mm3 (4.5-10.0)
[2024-07-06 05:57] LABS: Anion Gap 10 mmol/L (4-12); Blood Urea Nitrogen 14 mg/dL (7-17); Calcium 9.1 mg/dL (8.4-10.2); Carbon Dioxide 27 mmol/L (22-30); Chloride 100 mmol/L (98-107); Cholesterol 219 mg/dL (0-200); Estimated CRCL calculation 114 ml/min; Estimated Glomerular Filt Rate > 60; Glucose 153 mg/dL (65-110); HDL Direct 55 mg/dL; Potassium 4.8 mmol/L (3.4-5.0); Sodium 137 mmol/L (137-145); Triglycerides 104 mg/dL (<150)
[2024-07-06 06:08] LABS: LDL Cholesterol Direct 116 mg/dL
--- NOTE | 2024-07-06 09:00 | PCSTNOTE ---
Please refer to the Bedside Swallow Evaluation in the EMR. Please note, silent aspiration cannot be ruled out at bedside. The above pleasant and cooperative pt was seen for a swallow evaluation at the bedside. The pt positioned herself upright in the bed. She was alert & oriented and able to follow commands. She is currently on a regular diet; she states she has had previous occasional difficulty with swallowing in that food occasionally gets stuck, but she stated she ate a cheeseburger last night and did not have any difficulty. Oral mucosa is normal; natural dentition is in good condition; oral peripheral exam revealed lingual and labial structures to be normal. She was able to dry swallow on command and clear vocal quality. She was tested with pudding, crackers, and thin liquids. The oral stages appeared WNL. No oral leakage, residue or pocketing was noted. During the pharyngeal stage, swallow reflex appeared prompt & laryngeal elevation adequate. No overt s/s of aspiration were exhibited; however, silent aspiration cannot be ruled out at bedside. Pt did not report any items getting stuck during testing. General impression is normal swallow ability. Recommendation: Continue the current diet. Regular level 7 diet with regular liquids level 0. Thank you for this referral.
[2024-07-06] MEDS: PANTOPRAZOLE 40 MG TABLET PO (09:34)
[2024-07-06] MEDS: ATORVASTATIN 40 MG TABLET PO (09:34)
[2024-07-06] MEDS: buPROPion HCL 75 MG TABLET 150 MG PO ×2 (09:34→20:49)
[2024-07-06] MEDS: CLOPIDOGREL BISULFATE 75 MG TABLET PO (09:34)
[2024-07-06] MEDS: ASPIRIN 81 MG CHEWABLE TABLET PO (09:34)
--- NOTE | 2024-07-06 11:18 | P.CONNEU_ITS ---
Assessment and Plan Assessment and plan (1) Acute cerebrovascular accident (CVA): Code(s): I63.9 - Cerebral infarction, unspecified Status: Acute Assessment and Plan: CT scan of brain and MRI of the brain has shown acute infarct in the posterior part of the left frontal lobe. The patient has difficulty with the following two-step commands although she is able to find words were most part but she does have some difficulties in this area also. She does seem to comprehend given commands. She will need to work with speech therapist. In terms of stroke she will require workup for hypercoagulable states please see also history of rheumatoid arthritis but she is not on any immunosuppressant type treatment at this time. She should be treated with dual antiplatelets and statin. LDL was 116 the goal would be keep it under 65. She does not appear to have any weakness in upper lower limbs and is able to walk independently. And special concentrate on the speech therapy for now. I have alerted her that given finding of hypertension she needs to have this followed up and the risk factor management is very important given her young age. She should be followed up in Neurology office upon discharge. (2) Rheumatoid arthritis: Code(s): M06.9 - Rheumatoid arthritis, unspecified Status: Acute (3) Osteoarthritis of knee: Qualifiers: Osteoarthritis type: primary Laterality: left Qualified Code(s): M 17.12 - Unilateral primary osteoarthritis, left knee Code(s): M17.10 - Unilateral primary osteoarthritis, unspecified knee Status: Acute Plan The patient is on cardiac monitoring and echocardiogram with bubble study has been ordered. I have placed order for hypercoagulable states. She is on aspirin and Plavix and atorvastatin 40 mg a day that should continue. Speech therapy is recommended. EKG is suggestive of left ventricular hypertrophy. I will suggest a close follow-up her blood pressure also. This morning her blood pressure was 136/82 which appears satisfactory. Consult date: 07/06/24 HPI: Sravan Peck is a 49 year old female presented to the hospital yesterday with the difficulty with expressing herself or finding the right words or at times appearing confused. When I came to see her 3 of her friends were in her room and they were also additionally helpful since the frequently visits her. Patient lives to her children and is currently single. According to 1 of her friend on Saturday which is 2 days before she presented to this hospital there noted that she was having difficulty with expressing herself or sometimes find the right words and doing wrong things either in saying or writing or putting things in the wrong place. The same pattern was observed on Saturday. They went to or the hospital in [place] and a they thought that this was nothing significant and no testing was done. Subsequently she was brought to this hospital yesterday and a a CT scan of brain shows infarct in the left frontal area which is further confirmed by the MRI done this morning. The patient is able to walk around and use her hands and feet without any problem but she has difficulty at times with word 5 or saying the right things or at times expressing herself. Other than that she denies any headache. No diplopia. No nausea or vomiting. She has not had any fall or injuries. No history of migraine. Review of Systems 2 Constitutional: Constitutional: Denies chills, Denies fever(s) and Denies weight loss Eyes: Eyes: Denies diplopia and Denies loss of vision ENT: Denies dizziness, Denies hearing loss and Denies tinnitus Cardiovascular: Cardiovascular: Denies chest pain, Denies syncope and Denies dyspnea Respiratory: Respiratory: Denies cough, Denies dyspnea and Denies wheezing Gastrointestinal: Gastrointestinal: Denies abdominal pain, Denies change in bowel habits and Denies vomiting Genitourinary: Genitourinary: Denies urinary incontinence Musculoskeletal: Musculoskeletal: Denies arthralgias and Denies joint swelling Integumentary/Breasts: Skin/Breast: Denies new lesions and Denies rash Neurologic: Reports as per HPI, Denies dizziness, Denies syncope and Denies loss of vision Psychiatric: Psychiatric: Denies anxiety and Reports depression Endocrine: Endocrine: Denies cold intolerance and Denies heat intolerance Hematologic/Lymphatic: Hematologic/Lymphatic: Denies easy bleeding and Denies easy bruising Allergic/Immunologic: Allergic/Immunologic: Denies no additional allergic/immunologic complaints and Denies wheezing PMFSH Past Medical History Medical History (Updated 07/06/24 @ 11:26 by Ancelmo Green MD) History of depression History of hypothyroidism Osteoarthritis of knee Rheumatoid arthritis Surgical History Surgical History History of section 1993, 2008, 2011 Previous back surgery Family History Family History Grandparent Diabetes mellitus Social History Social History Smoking status: Never smoker Second hand tobacco smoke exposure: No Alcohol intake: never Substance use type: does not use Do You Feel Safe in your Home?: Yes Lack of Transportation: No Lack of Food: Never True Current Housing: I Have Housing Concerned About Future Housing: No Difficulty Paying Gas/Electric Bills: No Difficulty Paying for Meds: No Currently Unemployed: No Education: Associate Degree Difficulty w/ Childcare or Family Care: No Spiritual care concerns: Yes (Catholic - no blood products) Meds Home Medications and Allergies Home Medications ?Medication ?Instructions ?Recorded ?Confirmed ?Type levothyroxine 25 mcg tablet 25 mcg PO DAILY 03/10/19 07/05/24 History bupropion HCl 100 mg tablet 150 mg PO DAILY 07/05/24 07/05/24 History cetirizine 10 mg capsule (All Day 10 mg PO DAILY PRN allergy 07/05/24 07/05/24 History Allergy (cetirizine)) omeprazole 20 mg capsule,delayed 20 mg PO DAILY heartburn/reflux 07/05/24 07/05/24 History release Allergies Allergy/AdvReac Type Severity Reaction Status Date / Time Penicillins Allergy Unknown Unknown Verified 07/05/24 13:47 peanut Allergy Anaphylaxis Verified 07/05/24 13:47 Vital Signs Vital Signs - 24 hr 07/05/24 13:48 07/05/24 14:02 07/05/24 14:02 Temperature 97.2 F L Pulse Rate 90 89 Respiratory Rate 16 16 Blood Pressure 167/100 H 217/131 H Pulse Oximetry 100 98 Oxygen Delivery Room Air Room Air 07/05/24 14:57 07/05/24 15:42 07/05/24 16:32 Temperature Pulse Rate 89 86 89 Respiratory Rate 22 H 16 16 Blood Pressure 161/107 H 167/85 H 169/89 H Pulse Oximetry 99 96 98 Oxygen Delivery 07/05/24 17:19 07/05/24 18:23 07/05/24 18:53 Temperature 97.7 F Pulse Rate 86 101 H 80 Respiratory Rate 16 16 16 Blood Pressure 148/87 H 139/95 H 142/79 H Pulse Oximetry 98 95 97 Oxygen Delivery 07/05/24 20:00 07/05/24 21:46 07/05/24 22:40 Temperature 97.6 F Pulse Rate 87 91 Respiratory Rate 18 Blood Pressure 149/79 H Pulse Oximetry 97 Oxygen Delivery CPAP 07/06/24 00:00 07/06/24 01:40 07/06/24 04:00 Temperature 97.2 F L Pulse Rate 80 60 86 Respiratory Rate 20 Blood Pressure 127/70 Pulse Oximetry 100 Oxygen Delivery 07/06/24 06:00 07/06/24 08:00 07/06/24 08:00 Temperature 97.0 F L 97.1 F L Pulse Rate 82 78 Respiratory Rate 20 16 Blood Pressure 117/60 136/82 Pulse Oximetry 98 98 98 Oxygen Delivery Room Air 07/06/24 08:00 07/06/24 08:23 07/06/24 09:09 Temperature Pulse Rate 95 Respiratory Rate Blood Pressure Pulse Oximetry Oxygen Delivery Room Air Room Air Exam 2 Const: General: no acute distress Orientation/consciousness: oriented to person, oriented to place and oriented to time Other: However she had difficulty on mental status testing. She it was difficult for her to find names of 5 cities which she eventually had some difficulties. She has difficulty naming 5 5 food or 5 colors. She also has difficulty with 2 step commands and gets mixed of the right than left side also. She seems to comprehend given commands and try to follow the HENMT: Head: normocephalic and atraumatic Ears: hearing grossly normal bilaterally and external ears normal Face/Nose/Sinus: Normal external nose present Mouth: Yes Normal oral and palatal mucosa present Eyes: General: appearance normal, both eyes and all related structures E yelids: eyelids normal Conjunctivae: conjunctivae normal Pupils: Equal, round and reactive pupils present EOM: No Nystagmus present Neck: Neck: normal visual inspection Resp: Effort & Inspection: normal respiratory effort Cardio: Rate: regular rate Rhythm: regular rhythm Skin: General skin exam: normal color and no rashes or lesions noted Neuro: General: oriented to person, oriented to place and oriented to time Cranial nerves: Yes CN's II-XII intact bilaterally, Yes Equal, round and reactive pupils present, Yes Bilaterally intact EOM present, Yes Nystagmus not present, Yes Normal facial strength present, Yes facial symmetry, Yes Midline tongue present, Yes Symmetric palate elevation present, Yes Normal hearing present, Yes Ability to bilaterally elevate shoulders present and No Nystagmus present Gait exam (Neuro): Normal gait present Motor exam (neuro): 5/5 motor strength present throughout, Normal motor muscle tone present throughout and Motor abnormalities not present Sensory Exam: normal sensation Deep tendon reflexes (DTR's): Right triceps reflex intensity grade: 1+, Left triceps reflex intensity grade: 1+, Rt Biceps (C5, C6): 1+, Left biceps reflex intensity grade: 1+, Right brachioradialis reflex intensity grade: 1+, Left brachioradialis reflex intensity grade: 1+, Right patellar reflex intensity grade: 1+, Left patellar reflex intensity grade: 1+, Right ankle reflex intensity grade: 1+ and Left ankle reflex intensity grade: 1+ Coordination: f [id number] test normal, tandem gait normal and Romberg test negative O ther: Mental status examination described above shows abnormal findings Extrem: General: normal to inspection Psych: Appearance: grossly normal Mental Status: mental status grossly normal Affect: normal affect Attitude: cooperative Results Labs 07/06/24 05:29 07/06/24 05:29 Labs: Short CBC 07/05/24 07/06/24 Range/Units 14:36 05:29 WBC 7.4 13.9 H (4.5-10.0) K/mm3 Hgb 12.8 12.8 (12.0-15.0) g/dL Hct 39.2 40.6 (37.0-47.0) % Plt Count 370 351 (150-375) k/mm3 BMP 07/05/24 07/06/24 14:36 05:29 Sodium 137 137 Potassium 3.9 4.8 Chloride 103 100 Carbon Dioxide 26 27 BUN 12 14 Creatinine 0.68 L 0.72 Glucose 119 H 153 H Calcium 9.1 9.1 Liver Function 07/05/24 Range/Units 14:36 Total Bilirubin 0.7 (0.2-1.3) mg/dL AST 31 (14-36) U/L ALT 32 (6-35) U/L Alkaline Phosphatase 60 (38-126) U/L Albumin 4.4 (3.5-5.1) g/dL Urine 07/05/24 Range/Units 14:36 Urine Color Yellow (Yellow) Urine Appearance Clear (Clear) Urine pH 7.5 (5.0-9.0) Ur Specific [place] 1.015 (1.001-1.035) Urine Protein Negative (Negative) mg/dL Urine Glucose (UA) Trace H (Negative) mg/dL
--- NOTE | 2024-07-06 12:17 | PM.IMPN ---
Progress Note: A&P Assessment and Plan (1) Acute cerebrovascular accident (CVA): Code(s): I63.9 - Cerebral infarction, unspecified Status: Acute Assessment and Plan: New deficits of word-finding difficulty and confusion starting on Saturday, 07/03, upon awakening. LKW on 07/02. - admission for observation and telemetry - not candidate for thrombolytics or thrombectomy, time frame and no large vessel occlusion seen on CT - head CT:Focal acute left posterior frontal lobe infarct. - head/neck CTA: No large vessel intracranial occlusion, high-grade intracranial stenosis, or aneurysm. No carotid or vertebral artery occlusion, dissection, or significant stenosis. - neurology consulted - check brain MRI and echo w/Bubble - neuro checks Q4 - speech/swallow eval, PT/OT eval - monitor daily labs, check lipid panel, TSH, and A1C - start Atorvastatin 40 mg PO, Plavix 75 mg PO, ASA 81 mg - consider 30 day event monitoring at discharge speech saw her- she is cleared for diet neurology following- plavix, asa, statin recommended. BP is a lot better-will monitor for now, will discuss initiation of BP therapy discussed weight loss -goal is to lose 10% of body weight in a year to prevent metabolic syndrome and decrease risk for cardiovascular events echo pending Plan Diet: Heart healthy GI Prophylaxis: Not currently indicated DVT Prophylaxis: SCDs Lines: Peripheral Code Status: Full code Time Spent With Patient Time with patient: 25 - 35 minutes Subjective Date/time seen: 07/06/24 12:17 Interval history: 49 y/o F with PMH of rheumatoid arthritis, hypothyroidism, and depression presents here with word-finding difficulty. She first developed symptoms on Saturday, 07/03, when she woke up having difficulties finding words. Last known well was 07/02. She has no previous history of a CVA, hypertension, smoking, or high cholesterol. Initial VS at presentation: 97.2? F, HR 90, R 16, 167/100, and 100% on RA. ED workup showed: No leukocytosis, no anemia, normal coags, no significant electrolyte derangements, creatinine 0.68 and GFR >60, glucose 119, UA showed trace glucose otherwise unremarkable. Head CT showed a focal acute left posterior frontal lobe infarct. Head/neck CTA showed no large vessel intracranial occlusion, high-grade intracranial stenosis, or aneurysm. No carotid or vertebral artery occlusion, dissection, or significant stenosis. EKG showed sinus rhythm, voltage criteria for LVH, borderline R-wave progression anterior leads (no previous available for comparison). Neurology was consulted. Speech saw her and cleared her to advance diet. She is doing well. Has not seen PCP in awhile-requesting info. states has no insurance. Review of Systems Review of Systems: All systems reviewed & are unremarkable except as noted in HPI and below Exam Const: General: comfortable and no acute distress Other: , female, nontoxic appearance HENMT: Face/Nose/Sinus: Normal nares present Mouth: Yes moist mucous membranes Eyes: General: appearance normal, both eyes and all related structures Sclera: sclerae normal Pupils: Equal, round and reactive pupils present EOM: EOMs intact bilaterally Resp: Effort & Inspection: normal respiratory effort Auscultation: clear to auscultation bilaterally Cardio: Rate: regular rate Rhythm: regular rhythm Other: S1-S2 present without murmur, rub, ectopy GI: Other: Abdomen soft, nondistended, nontender. Normoactive bowel sounds in all quadrants. Skin: General skin exam: normal color and no rashes or lesions noted Wounds: no wounds Neuro: Cranial nerves: Yes Equal, round and reactive pupils present Other: +expressive aphasia, very mild. More so presenting as delay in processing, slower speech hilda. No facial droop, focal weakness, focal numbness on exam. EOM intact. +5 in all extremities. Extrem: General: normal to inspection Psych: Mental Status: mental status grossly normal Affect: normal affect Other: Good insight and judgment, very pleasant Objective Data Vital Signs Vital Signs: Vital Signs - 24 hr 07/05/24 13:48 07/05/24 14:02 07/05/24 14:02 Temperature 97.2 F L Pulse Rate 90 89 Respiratory Rate 16 16 Blood Pressure 167/100 H 217/131 H Pulse Oximetry 100 98 Oxygen Delivery Room Air Room Air 07/05/24 14:57 07/05/24 15:42 07/05/24 16:32 Temperature Pulse Rate 89 86 89 Respiratory Rate 22 H 16 16 Blood Pressure 161/107 H 167/85 H 169/89 H Pulse Oximetry 99 96 98 Oxygen Delivery 07/05/24 17:19 07/05/24 18:23 07/05/24 18:53 Temperature 97.7 F Pulse Rate 86 101 H 80 Respiratory Rate 16 16 16 Blood Pressure 148/87 H 139/95 H 142/79 H Pulse Oximetry 98 95 97 Oxygen Delivery 07/05/24 20:00 07/05/24 21:46 07/05/24 22:40 Temperature 97.6 F Pulse Rate 87 91 Respiratory Rate 18 Blood Pressure 149/79 H Pulse Oximetry 97 Oxygen Delivery CPAP 07/06/24 00:00 07/06/24 01:40 07/06/24 04:00 Temperature 97.2 F L Pulse Rate 80 60 86 Respiratory Rate 20 Blood Pressure 127/70 Pulse Oximetry 100 Oxygen Delivery 07/06/24 06:00 07/06/24 08:00 07/06/24 08:00 Temperature 97.0 F L 97.1 F L Pulse Rate 82 78 Respiratory Rate 20 16 Blood Pressure 117/60 136/82 Pulse Oximetry 98 98 98 Oxygen Delivery Room Air 07/06/24 08:00 07/06/24 08:23 07/06/24 09:09 Temperature Pulse Rate 95 Respiratory Rate Blood Pressure Pulse Oximetry Oxygen Delivery Room Air Room Air Intake/Output Intake/Output: Intake & Output 07/03/24 07/04/24 07/05/24 07/06/24 23:59 23:59 23:59 23:59 Intake Total 740 Balance 740 Meds/Results Medications: Active Medications Generic Name Dose Route Start Last Admin Trade Name Kenneth PRN Reason Stop Dose Admin Acetaminophen 650 mg 07/05/24 19:27 Acetaminophen 325 Mg Tablet PO Q4H PRN Mild Pain (1-3) or Fever Aspirin 81 mg 07/06/24 08:00 07/06/24 09:34 Aspirin 81 Mg Chewable Tablet PO 81 mg DAILY@0800 [facility] Administration Atorvastatin Calcium 40 mg 07/06/24 09:00 07/06/24 09:34 Atorvastatin 40 Mg Tablet PO 40 mg DAILY JASMIN Administration Bupropion HCl 150 mg 07/06/24 17:00 Bupropion Hcl 75 Mg Tablet PO BID JASMIN Clopidogrel Bisulfate 75 mg 07/06/24 09:00 07/06/24 09:34 Clopidogrel Bisulfate 75 Mg Tablet PO 75 mg QAM JASMIN Administration Levothyroxine Sodium 25 mcg 07/06/24 06:30 07/06/24 05:39 Levothyroxine Sodium 25 Mcg Tablet PO 25 mcg DAILY@0630 JASMIN Administration Loratadine 10 mg 07/05/24 19:41 Loratadine 10 Mg Tablet PO DAILY PRN allergy Ondansetron HCl 4 mg 07/05/24 19:27 07/06/24 01:22 Ondansetron Inj 4 Mg/2 Ml Vial IV PUSH 4 mg Q6H PRN Administration Nausea And Vomiting Pantoprazole Sodium 40 mg 07/06/24 09:00 07/06/24 09:34 Pantoprazole 40 Mg Tablet PO 40 mg QAM JASMIN Administration Perflutren Lipid Microsphere 0 ml 07/05/24 19:26 Perflutren Lipid Microspheres 1.5 Ml Vial Diluted To 10 Ml Total Volume IV PUSH 07/08/24 19:26 ONCE PRN adequate visualization Protocol Radiology Results: ITS Impressions Head CT 07/05/24 15:28 IMPRESSION: Focal acute left posterior frontal lobe infarct. Results reported telephonically to Thao Markham PA-C by Dr. Rene at 3:33 PM on 07/05/2024. Head/Neck CTA 07/05/24 16:26 IMPRESSION: No large vessel intracranial occlusion, high-grade intracranial stenosis, or aneurysm. No carotid or vertebral artery occlusion, dissection, or significant stenosis. Brain MRI 07/06/24 09:10 IMPRESSION: 1. Small acute infarct in the posterior left frontal lobe. Labs Labs: Laboratory Results - last 24 hr 07/05/24 07/05/24 07/06/24 14:34 14:36 05:29 WBC 7.4 13.9 H RBC 4.53 4.55 Hgb 12.8 12.8 Hct 39.2 40.6 MCV 86.5 89.2 MCH 28.3 28.1 MCHC 32.7 31.5 L RDW 13.3 13.5 Plt Count 370 351 MPV 9.3 9.2 Immature Gran % (Auto) 0.4 0.4 Neut % (Auto) 55.0 83.7 H Lymph % (Auto) 29.3 8.0 L Fannin % (Auto) 11.6 H 7.2 Eos % (Auto) 2.8 0.3 Baso % (Auto) 0.9 0.4 Lymph # (Auto) 2.17 1.11 Fannin # (Auto) 0.9 H 1.0 H Eos # (Auto) 0.2 0.0 Baso # (Auto) 0.1 0.1 Abs Immat Gran (auto) 0.03 0.05 H Absolute Neuts (auto) 4.1 11.6 H Absolute Nucleated RBC 0.000 0.000 Nucleated RBC % 0.0 0.0 PT 13.2 INR 1.0 APTT 26.8 Sodium 137 137 Potassium 3.9 4.8 Chloride 103 100 Carbon Dioxide 26 27 Anion Gap 8 10 BUN 12 14 Creatinine 0.68 L 0.72 Estim Creat Clear Calc 113 114 Estimated GFR > 60 > 60 Glucose 119 H 153 H Calcium 9.1 9.1 Total Bilirubin 0.7 AST 31 ALT 32 Alkaline Phosphatase 60 Total Protein 8.0 Albumin 4.4 Triglycerides 104 Cholesterol 219 H LDL Cholesterol Direct 116 HDL Direct 55 TSH (Reflex) 1.480 Urine Color Yellow Urine Appearance Clear Urine pH 7.5 Ur Specific [place] 1.015 Urine Protein Negative Urine Glucose (UA) Trace H Urine Ketones Negative Ur Blood (Man) Negative Urine Nitrate Negative Urine Bilirubin Negative Urine Urobilinogen 0.2 Leukocyte Esterase Rfl Negative POC Urine HCG, Qual Negative Quality VTE Prophylaxis VTE prophylaxis: mechanical ordered
--- NOTE | 2024-07-06 19:26 | ECHO_ITS ---
Patient Info Name: Sravan Peck Age: 49 years : 1975 Gender: Female Ht: 69 in Wt: 257 lbs BSA: 2.43 m2 HR: 86 bpm BP: 127 / 70 mmHg Heart Rhythm: Sinus Rhythm Technical Quality: Good Exam Date: 07/06/2024 2:34 PM Exam Location: Echo Lab Patient Status: Outpatient Admit Date: 07/05/2024 Staff Ordering Physician: Marline Traore APRN [employer] Operator: Samantha Mendoza RDCS Attending Provider: Ricardo Maria MD Referring Physician: León AGUILAR; Exam Type: CA echo doppler w bubble study Study Info Indications - Acute CVA Complete two-dimensional, color flow and Doppler transthoracic echocardiogram is performed with agitated saline. Contrast/Agitated Saline Contrast/Ag. Saline: Agitated Saline Amount: 14.00 ml Administered By: Samantha Mendoza RDCS Existing IV Access: Yes IV Access Condition: patent with no signs of infiltration Summary 1. Left ventricular chamber dimension is normal. 2. Left ventricular systolic function is normal, estimated at 60-65%. 3. The left ventricular diastolic function is normal. 4. E/e' 8 is minimally elevated. 5. Left atrial chamber dimension is mildly enlarged. 6. Agitated saline injection with and without valsalva maneuver opacified right side cardiac chambers with significant shunt of bubbles to left side cardiac chambers suggestive of patent foramen ovale. 7. No pulmonary hypertension, estimated pulmonary arterial systolic pressure is 14 mmHg. 8. There is trace pulmonic regurgitation. Left Ventricle E/e' 8 is minimally elevated. Left ventricular chamber dimension is normal. Left ventricular systolic function is normal, estimated at 60-65%. The left ventricular diastolic function is normal. Right Ventricle Right ventricular systolic function is normal and with normal TAPSE 1.9 cm. Right ventricular chamber dimension is normal. Left Atria Left atrial chamber dimension is mildly enlarged. Right Atria Right atrial chamber dimension is normal. Atrial Septum Agitated saline injection with and without valsalva maneuver opacified right side cardiac chambers with significant shunt of bubbles to left side cardiac chambers suggestive of patent foramen ovale. Interatrial septum not well visualized by 2D and agitated saline imaging. Aortic Valve The aortic valve is trileaflet. There is no aortic valve stenosis. There is no aortic valve regurgitation. Pulmonic Valve There is trace pulmonic regurgitation. Mitral Valve There is no mitral valve stenosis. There is no mitral valve regurgitation. Tricuspid Valve There is no tricuspid valve regurgitation. No pulmonary hypertension, estimated pulmonary arterial systolic pressure is 14 mmHg. Pericardium/Pleural There is no pericardial effusion. Inferior Vena Cava Normal inferior vena cava with >50% collapse upon inspiration consistent with normal right atrial pressure, 5 mmHg. Aorta The aortic root size at the sinus of Valsalva is normal. Left Ventricular Outflow Tract Name Value Normal LVOT 2D LVOT Diameter 2.0 cm LVOT Doppler LVOT Peak Gradient 5 mmHg LVOT Mean Gradient 3 mmHg LVOT VTI 20 cm LVOT VTI/AV VTI Ratio 0.7 LVOT Stroke Volume 63 ml LVOT CO 4.8 l/min LVOT CI 2.0 l/min/m2 Pulmonic Valve Name Value Normal RVOT Doppler RVOT Peak Gradient 2 mmHg PV Doppler PV Peak Gradient 5 mmHg Mitral Valve Name Value Normal MV Doppler MV Decel Piute 288 cm/s2 MV PHT 71 ms MV Area (PHT) 3.1 cm2 4.0-5.0 MV Diastolic Function MV E Peak Velocity 71 cm/s MV A Peak Velocity 67 cm/s MV E/A 1.0 MV Decel Time 245 ms MV Annular TDI MV E/e' (Septal) 10.4 <=8.0 MV E/e' (Lateral) 6.6 <=8.0 MV E/e' (Average) 8.5 Tricuspid Valve Name Value Normal TV Regurgitation Doppler TR Peak Velocity 146 cm/s TR Peak Gradient 9 mmHg Estimated PAP/RSVP RA Pressure 5 mmHg <=5 PA Systolic Pressure 14 mmHg <36 RV Systolic Pressure 14 mmHg <36 Aorta Name Value Normal Ascending Aorta Ao Root Diameter (MM) 3.3 cm Ao Root Diam Index (MM) 1.3 cm/m2 Aortic Valve Name Value Normal AV Doppler AV Peak Velocity 161 cm/s AV Peak Gradient 10 mmHg AV Mean Gradient 5 mmHg AV VTI 28 cm AV Area (Cont Eq VTI) 2.2 cm2 >=3.0 AV Area (Cont Eq Levi) 2.2 cm2 AV Regurgitation 2D LVOT Area 3.1 cm2 Ventricles Name Value Normal LV Dimensions 2D/MM IVS Diastolic Thickness (2D) 1.1 cm 0.6-1.0 LVID Diastole (2D) 4.9 cm 3.8-5.2 LVIW Diastolic Thickness (2D) 0.9 cm 0.6-0.9 LVID Systole (2D) 3.1 cm 2.2-3.5 LVOT Diameter 2.0 cm LV Mass (2D Cubed) 170.62 g 67.00-162.00 LV Mass Index (2D Cubed) 70 g/m2 43-95 Relative Wall Thickness (2D) 0.37 LV Fractional Shortening/Ejection Fraction 2D/MM LV Fractional Shortening (2D) 36 % 27-45 LV EF (2D Teicholz) 65 % 54-74 LV Diastolic Volume (4C MOD) 60 ml LV EF (4C MOD) 62 % LV Diastolic Volume (2C MOD) 43 ml LV EF (2C MOD) 66 % LV Diastolic Volume (BP MOD) 51 ml 46-106 LV Diastolic Volume Index (BP MOD) 21 ml/m2 29-61 LV Systolic Volume (BP MOD) 18 ml 14-42 LV Systolic Volume Index (BP MOD) 8 ml/m2 8-24 LV EF (BP MOD) 64 % 54-74 LV Diastolic Length (4C) 7.8 cm LV Systolic Length (4C) 6.5 cm LV Stroke Volume (4C MOD) 37 ml Atria Name Value Normal LA Dimensions LA Dimension (MM) 4.0 cm 2.7-3.8 LA Volume (4C A-L) 73 ml LA Volume (BP A-L) 67 ml RA Dimensions RA Area (4C) 13.5 cm2 <=18.0 Report Signatures
[2024-07-07] VITALS: PULSE 87
[2024-07-07 04:00] VITALS: PULSE 74
[2024-07-07 05:51] LABS: Hemoglobin 12.4 g/dL (12.0-15.0); Mean Corpuscular HGB Conc 31.8 g/dl (32-36); Mean Corpuscular Hemoglobin 28.4 pg (26-34); Mean Corpuscular Volume 89.4 fl (80-100); Mean Platelet Volume 9.1 fl (7.4-10.4); Platelet Count Result 342 k/mm3 (150-375); Red Blood Count 4.36 M/mm3 (4.2-5.4); Red Cell Distribution Width 13.4 % (11.5-14.5); White Blood Count 11.4 K/mm3 (4.5-10.0)
[2024-07-07 06:00] VITALS: BP 130/58; PULSE 72; RESP 20; TEMP 36.3; O2SAT 99
[2024-07-07] MEDS: LEVOTHYROXINE SODIUM 25 MCG TABLET PO (06:02)
[2024-07-07 06:03] LABS: Fibrinogen 357 mg/dl (215-510)
[2024-07-07 06:08] LABS: CRP 1.1 mg/dL (<1.0)
[2024-07-07 06:33] LABS: Hemoglobin A1C 6.4 % (<5.7)
[2024-07-07 06:49] LABS: Vitamin D 25 Hydroxy 51.6 ng/mL
[2024-07-07 08:00] VITALS: PULSE 101
--- NOTE | 2024-07-07 08:26 | PM.DS ---
DS: Admitting Diagnosis Discharge Date 07/07 Admitting Diagnosis stroke like symptoms DS: Discharge Diagnosis Discharge Diagnosis (1) Acute cerebrovascular accident (CVA): Code(s): I63.9 - Cerebral infarction, unspecified Status: Acute (2) Prediabetes: Code(s): R73.03 - Prediabetes Status: Acute (3) Metabolic syndrome: Code(s): E88.810 - Metabolic syndrome Status: Acute DS: Summary Hospital Course Hospital Course: 49 y/o F with PMH of rheumatoid arthritis, hypothyroidism, and depression presents here with word-finding difficulty. She first developed symptoms on Saturday, 07/03, when she woke up having difficulties finding words. Last known well was 07/02. She has no previous history of a CVA, hypertension, smoking, or high cholesterol. CT scan of brain and MRI: acute infarct in the posterior part of the left frontal lobe. Neurology was consulted and she was started on asa, plavix and statin. Speech saw her and cleared. Workup for hypercoagulable states was initiated per neurology, she will f/u with Dr Green as an outpt. She has history of rheumatoid arthritis but she is not on any immunosuppressant type treatment at this time. She was not seen per PCP and had Cpap for over 13 years and had no f/u for ehr sleep apnea. She should be treated with dual antiplatelets and statin. LDL was 116 the goal would be keep it under 65. She does not appear to have any weakness in upper lower limbs and is able to walk independently. CTa was done and unremarkable. BP was high upon admission but improved. Her average bp was 130/80. After discussion, she is ok with getting a script for HTN but monitoring it at home daily and start taking meds if BP remains elevated and/or until she is able to f/u with pcp. We checked hga1c and it was 6.5- we discussed prediabetes and tx options. Pt is ok to start Metformin 500 mg daily. She knows that she needs to recheck kidney function in 3 months or so. It was subjective report of dark stool? unable to collect stool for occult blood. Pt HG is stable, she doensot have any c/o dizziness. She is overdue for colonoscopy anyway, will refer to PCP. Pt was instructed to monitor stool and come back to ed if any more bleeding concerns. We will repeat cbc in a week just to ensure hg is stable. She needs to f/u with pcp and visiting housekeeper for her lupus/arthritis. Echo was done 07/06/24: Summary 1. Left ventricular chamber dimension is normal. 2. Left ventricular systolic function is normal, estimated at 60-65%. 3. The left ventricular diastolic function is normal. 4. E/e' 8 is minimally elevated. 5. Left atrial chamber dimension is mildly enlarged. 6. Agitated saline injection with and without valsalva maneuver opacified right side cardiac chambers with significant shunt of bubbles to left side cardiac chambers suggestive of patent foramen ovale. 7. No pulmonary hypertension, estimated pulmonary arterial systolic pressure is 14 mmHg. 8. There is trace pulmonic regurgitation. Status at Discharge Functional status at discharge: independent ambulation Overall status at discharge: patient is progressing back to baseline Time Spent with Patient Time attestation: Total time spent providing and/or coordinating discharge services: Time spent: Greater than 30 minutes Exam Narrative: no deficits. Const: General: comfortable and no acute distress Other: , female, nontoxic appearance HENMT: Face/Nose/Sinus: Normal nares present Mouth: Yes moist mucous membranes Eyes: General: appearance normal, both eyes and all related structures Sclera: sclerae normal Pupils: Equal, round and reactive pupils present EOM: EOMs intact bilaterally Resp: Effort & Inspection: normal respiratory effort Auscultation: clear to auscultation bilaterally Cardio: Rate: regular rate Rhythm: regular rhythm Other: S1-S2 present without murmur, rub, ectopy GI: GI Palp: Yes Soft to palpation Other: Abdomen soft, nondistended, nontender. Normoactive bowel sounds in all quadrants. Skin: General skin exam: normal color and no rashes or lesions noted Wounds: no wounds Neuro: Cranial nerves: Yes Equal, round and reactive pupils present Motor exam (neuro): 5/5 motor strength present throughout Sensory Exam: normal sensation Other: EOM intact. +5 in all extremities. Extrem: General: normal to inspection Psych: Mental Status: mental status grossly normal Affect: normal affect Other: Good insight and judgment, very pleasant DS: Data Data Completed and Pending Completed studies during hospitalization: cta head/neck, ct head, mri, echo Labs on day of discharge: Labs from last 24 hours 07/07/24 05:41 WBC 11.4 H RBC 4.36 Hgb 12.4 Hct 39.0 MCV 89.4 MCH 28.4 MCHC 31.8 L RDW 13.4 Plt Count 342 MPV 9.1 Fibrinogen 357 LA PTT Screen Pending LA PTT Comment Pending dRVVT Screen Pending Lupus Anticoag Interp Pending Prot C Funct Activity Pending APC Resistance Ratio Pending Protein S Activity Pending Antithrombin III Activ Pending Factor V Leiden Mutat Pending Factor V Mutat Interp Pending Hemoglobin A1c 6.4 H C-Reactive Protein 1.1 Lipoprotein (a) Pending Vitamin B12 498.0 Vitamin D 25-Hydroxy 51.6 Folate 11.0 Homocysteine Pending Serum Immunofixation Pending Anti-Cardiolipin IgG Ab Pending Anti-Cardiolipin IgA Ab Pending Anti-Cardiolipin IgM Ab Pending MTHFR DNA Mutation Anal Pending MTHFR Interpretation Pending Prothrombin Gene Mutate Pending Prothromb Gene Comment Pending Discharge Plan Discharge Attending physician on discharge: Estephania Chauhan Consulting providers: Lorri Chavez; Ancelmo Green Discharging Clinician: Dara Saunders Patient Disposition: Home Activity: july shower Diet: heart healthy and diabetic Discharge Instructions: You were admitted for concerns for a stroke. CT scan of brain and MRI: acute infarct in the posterior part of the left frontal lobe. Neurology was consulted and you were started on asa, plavix and statin. Speech therapy saw you. You will have to f/u with neurology and speech therapy. Workup for hypercoagulable states was initiated per neurology, she will f/u with Dr Green as an outpt. Speech therapy as an outpt was ordered. She has history of rheumatoid arthritis but she is not on any immunosuppressant type treatment at this time. She was not seen per PCP and had Cpap for over 13 years and had no f/u for her sleep apnea. She should be treated with dual antiplatelets and statin. LDL was 116 the goal would be keep it under 65. She does not appear to have any weakness in upper lower limbs and is able to walk independently. CTa was done and unremarkable. BP was high upon admission but improved. Average bp was 130/80. Your goal is to have BP around 140/90 or lower. As we discussed, I will send you a script for HTN but monitoring it at home daily and start taking meds if BP remains elevated and/or until you are able to f/u with pcp. We checked hga1c and it was 6.5- we discussed prediabetes and tx options. We will start Metformin 500 mg daily. You need to recheck kidney function in 3 months or so. It was subjective report of dark stool. unable to collect stool for occult blood. Your hemaglobin was stable. You are overdue for colonoscopy anyway, will refer to PCP. Please see PCP and have colonoscopy scheduled. Please continue to monitor stool and come back to ER if any more bleeding concerns. We will repeat cbc in a week just to ensure levels are stable. You need to f/u with pcp and visiting housekeeper for lupus/arthritis, and sleep apnea. Stroke Risk Factor Modification: - Goal Blood pressure <140/90 - Goal HbA1c <7 (blood sugar measurement for 3 months. Yuors was 6.4-done on 07/06) - Goal LDL <100 - Physical Activity: 3-4x 40min sessions of aerobic exercise per week - Nutrition: diet rich in fruit and vegetables, reduction in sodium intake to <2.4g/d - Tobacco avoidance To maintain a healthy weight, a balance of the energy taken in must equal the energy spent on activity to keep your body functioning. By using more energy than you are eating, weight loss will occur. This can be done by increasing your physical activity or by taking in less calories; however, too little food (by skipping meals, crash diets) can negatively affect your metabolism. Nutrition Tips Eat more fresh fruits and vegetables, whole grains, low fat diary and lean proteins such as fish, turkey, chicken and beans. Eat fewer foods higher in calories and fat such as fast food, desserts, snack foods, sweetened beverages, soft drinks including diet sodas, etc. Eating smaller portions can help you lose weight and keep it off. Crash diets may help you lose weight quickly but typically do not result in the ability to keep weight off. Physical Activity Tips ? Engage in regular physical activity while eating a balanced diet to lose weight and keep it off. Exercise irvin calories and fat as well as reduces your risk for chronic diseases. No matter your weight or weight loss goals, regular exercise will improve your health. Be sure to choose activities that you enjoy so that you will want to continue your weight loss journey. ? Aim for at least 150 minutes a week of moderate aerobic activity, 75 minutes a week of vigorous aerobic activity or a combination of moderate and vigorous activity for overall health benefits. Start with short sessions (10-15 minutes) if you have been inactive for a long time. Try adding 5 minutes to each session until you gradually build up to 30 minutes of exercise most days of the week. Swimming and water-based exercise can be a good alternative if other activities cause joint discomfort. Do not forget to drink plenty of fluids before, during and after exercise. ? Set a weight loss goal of 1-2 pounds per week. A long-term goal should also be set for 5-7 percent of total body weight but focusing on 1-2 pounds per week will get you on your way for a healthier you. ? Losing weight may cause muscle loss. Resistance training helps increase or maintain muscle mass. Be cautious lifting heavy weights if you have high blood pressure and avoid holding your breath. Increasing muscle mass helps you lose weight faster. ? Check with your doctor before starting a new exercise program, especially if you have any concerns about your fitness, have not exercised for a long time or have chronic health problems, such as heart disease, diabetes or arthritis. Ask about any changes to your medications or any concerns in becoming more active. A Few Tips to Keep You Motivated Weight control is one of many great benefits of healthy eating and regular exercise. You can also improve your mood, increase your energy levels, sleep better and improve your cholesterol and blood sugar levels. ? Schedule your physical activity into your day just like you would with brushing your teeth ? Try exercising with a friend or family member to make it more fun ? Try replacing some screen time (TV, computer, phone) with physical activity ? Start slow and work your way up to more challenging activities ? Change up your scenery - try walking in the park, on the trail, downtown or at the mall ? Break your workouts into small chunks - 10 minutes in the morning, 10 during your lunch break and 10 in the evening. ? Eat smaller more frequent meals and snacks with each including a fruit and lean protein ? Use smaller plates to help control portion sizes ? Drink water in place of sweetened beverages ? Look for healthy options at fast food restaurants (yogurt, fruit, salad, etc.) ? Choose skim milk and low-fat cheese and yogurts Patient Instructions: Antibiotic Form, Ischemic Stroke (DC) Patient Language: Belizean Stand Alone Forms: General Discharge Information Follow-up/Referrals: Ancelmo Green MD [Physician] - 2 Weeks PHYSICIAN,STORE [facility] [Primary Care Provider] - 1 Week Discharge Medications: New atorvastatin 40 mg Tablet 40 mg PO DAILY Qty: 90 0RF clopidogrel 75 mg Tablet 75 mg PO QAM Qty: 90 0RF aspirin [Children's Aspirin] 81 mg Tablet,Chewable 81 mg PO DAILY@0800 Qty: 90 0RF lisinopril 10 mg tablet 10 mg PO DAILY Qty: 90 0RF metformin 500 mg tablet 500 mg PO DAILY Qty: 90 0RF Continued levothyroxine 25 mcg tablet 25 mcg PO DAILY bupropion HCl 100 mg tablet 150 mg PO DAILY Rx Instructions: orally daily; All Day Allergy (cetirizine) 10 mg capsule 10 mg PO DAILY PRN (Reason: allergy) omeprazole 20 mg capsule,delayed release(DR/EC) 20 mg PO DAILY Other Ambulatory Orders: ST / Speech Therapy Outpatient Eval and Treat (ONCE) Timeframe: [id number] Location: Determined by Patient Ordered By: Dara Saunders Complete Blood Count no Diff (Routine) Timeframe: 1 Week Location: Determined by Patient Ordered By: Dara Saunders Date of admission: 07/06/24 15:31 Primary Care Provider: PHYSICIAN,[facility] Admitting Provider: Ricardo Maria Attending physician on admission: Ricardo Maria Condition: Stable Quality VTE Prophylaxis VTE prophylaxis: mechanical ordered Hospitalist MIPS Heart Failure (Exclusion) Patient has history of Heart Transplant or Left Ventricular Assistive Device?: No IF YES, STOP HERE Heart Failure (Qualifier) Patient has current or prior documentation of LVEF less than or equal to 40%, or mod/servere depressed LVSF?: No IF NO, STOP HERE
[2024-07-07 08:43] VITALS: BP 123/80; PULSE 86; RESP 16; TEMP 36.4; O2SAT 99
[2024-07-07] MEDS: buPROPion HCL 75 MG TABLET 150 MG PO (09:03)
[2024-07-07] MEDS: PANTOPRAZOLE 40 MG TABLET PO (09:03)
[2024-07-07] MEDS: CLOPIDOGREL BISULFATE 75 MG TABLET PO (09:03)
[2024-07-07] MEDS: ASPIRIN 81 MG CHEWABLE TABLET PO (09:03)
[2024-07-07] MEDS: ATORVASTATIN 40 MG TABLET PO (09:03)
[2024-07-07 12:00] VITALS: PULSE 88
[2024-07-08 13:13] LABS: Homocysteine 8.1 umol/L (<10.4)
[2024-07-08 20:03] LABS: Lupus dRVVT Screen 37 sec (< OR = 45); PTT-LA Screen 36 sec (< OR = 40)
[2024-07-09 03:04] LABS: Anti Cardio Antibody IgM 4.5 MPL-U/mL; Anti Cardiolipin Antibody IgA 3.4 APL-U/mL; Anti Cardiolipin Antibody IgG <2.0 GPL-U/mL
[2024-07-09 21:58] LABS: Immunofixation, Serum Normal pattern.
[2024-07-10 05:05] LABS: APC Ratio 4.6 ratio (>=2.1)
[2024-07-10 20:29] LABS: Antithrombin III Activity 96 % normal (80-135)
[2024-07-11 20:44] LABS: Factor V (Leiden) Mutation NEGATIVE
== END 2024-07-07 13:23 | disposition home or self-care (01) | DRG 45 ==
LOC: ANHED 16:39 → ANH3MEDSUR 17:53 → ANH3MED 18:25
PROVIDERS: Psychiatry & Neurology Neurology; Student in an Organized Health Care Education/Training Program; Admitting Provider General Practice; Emergency Provider Physician Assistant; Visit Provider Nurse Practitioner
DX: I63.9 Cerebral infarction, unspecified (principal); E03.9 Hypothyroidism, unspecified; M17.9 Osteoarthritis of knee, unspecified; M06.9 Rheumatoid arthritis, unspecified; E88.810 Metabolic syndrome; F32.A Depression, unspecified
CPT/HCPCS: 36415; 70450; 70496; 70498; 70553; 80048; 80053; 80061; 81003; 81025; 81240; 81241; 81291; 82306; 82607; 82746; 83036; 83090; 83695; 84443; 85025; 85027; 85300; 85303; 85306; 85307; 85384; 85610; 85613; 85730; 86140; 86147; 86334; 92610; 93005; 93306; 96374; 96375; 97161; 97165; 99285; A9270; A9577; G0378; G0379; J2060; J2405; Q9967

== ENCOUNTER 2024-07-09 13:29 | Emergency (ER) | payer SELFPAY ==
[2024-07-09 13:39] VITALS: BP 178/85; PULSE 80; RESP 19; TEMP 36.7; O2SAT 98
--- OUTSIDE RECORDS SUMMARY | 2024-07-09 13:48 | XMS_ITS | Clinical Summary ---
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
--- OUTSIDE RECORDS SUMMARY | 2024-07-09 13:48 | XMS_ITS | Clinical Summary ---
Author Organization [facility] Address [address] [place] [address] Care Team Providers Care Diagrammer And Seamer Name Role Phone Neftaly Elliott MD Primary Care Provider [phone] Allergies Active Allergy Reactions Criticality Noted Date Comments Peanut (Diagnostic) Anaphylaxis High 07/04/2024 Penicillins Unknown 07/04/2024 Medications levothyroxine (SYNTHROID) 25 MCG tablet Take 1 tablet (25 mcg total) by mouth every morning. 04/18/2024 Active Encounters Date Type Department Care Team Description 07/04/2024 9:17 PM CDT - 07/04/2024 10:50 PM CDT Emergency [facility] Emergency Services [address] [place] [address] [address] Garcia, Stress; Psychiatric Problem Discharge Disposition: Home or Self Care (Routine Discharge) 07/04/2024 Travel 05/08/2024 8:15 AM PROJECT BUILDER - 05/08/2024 11:59 PM PROJECT BUILDER Hospital Encounter [facility] Mammography [address] [address] Jah Faria MD Discharge Disposition: Home or [...] Sex Assigned at Female 05/01/2024 12:53 PM PROJECT BUILDER Legal Sex Female 4:08 PM CDT Gender [...] ALICIA THERESA DIGI Routine 05/08/2024 8:47 AM PROJECT BUILDER Encounter for screening mammogram for malignant neoplasm of breast HEPATITIS C ANTIBODY Routine 01/15/2018 5:18 PM CDT HPV MRNA E6/E7 Routine 08/21/2017 4:54 PM CDT from Last 3 Months or Most Recently Relevant to Health Maintenance Results * MG SCREENING W ALICIA THERESA DIGI (05/08/2024 8:47 AM PROJECT BUILDER) Anatomical Region Laterality Modality Breast Bilateral Mammography 05/08/2024 10:3 1 AM PROJECT BUILDER Impressions 05/08/2024 10:38 AM PROJECT BUILDER ===== IMPRESSION: ===== 1. Stable mammographic appearance with no new findings to suggest malignancy in either breast. Assessment: ACR BI-RADS 1 - NEGATIVE Recommendation: 1:Routine Screening Bilateral Comments: Ordered By: JAH FARIA Interpreted By: Abdi Larson, 05/08/2024 10:31 AM Narrative 05/08/2024 10:38 AM PROJECT BUILDER [address] [place] [address] EXAMINATION: Digital bilateral screening mammogram with 3-D [...] C ANTIBODY (01/15/2018 5:18 PM CDT) Pathologist [facility] HEPATITIS C AB NON-REACTI VE NON-REACTI VE 01/16/2018 3:01 PM CDT [facility] SERUM OR PLASMA SPECIMEN / Unknown 01/15/2018 5:18 PM CDT 01/15/2018 6:34 PM CDT Generic Conversion Md [facility] Final R esult [facility] [address] [place] [address], * HPV MRNA E6/E7 (08/21/2017 4:54 PM CDT) Pathologist [facility] HPV MRNA E6/E7 Not Detected NOT DETECTED 08/24/2017 3:11 PM CDT [facility] TALIA SPENCER Comment: This test was performed using the APTIMA(R) HPV Assay([employer]This assay detects E6/E7 viral messenger RNA (mRNA)from 14 high-risk HPV types (16,18,31,33,35,39,45,51,52,56,58,59,66,68).For additional information please refer to:http://education.[employer]/faq/[email or web address](This link is being provided for informational/educational purposes only.)The analytical performance characteristics of thisassay have been determined by [place], [place]. The modificationshave not been cleared or approved by the FDA. Thisassay has been validated pursuant to the CLIAregulations and is used for clinical purposes.Test Performed by [facility],[address] [place] [id number] Dodge M.D., Ph.D., Director of [phone], [facility] [id number] FLUID SPECIMEN / Unknown 08/21/2017 4:54 PM CDT 08/21/2017 4:54 PM CDT us Generic Conversion Md [facility] NITZA WOOD Final Result [facility] [address] [place] [address], [place] [phone] from Last 3 Months or Most Recently Relevant to Health Maintenance Insurance GENERIC - MEDICAID Care Teams Diagrammer And Seamer Relationship Specialty Start Date End Date Neftaly Elliott MD [address] [place] [address] PCP - General FAMILY PRACTICE 09/01/18
[2024-07-09 14:20] VITALS: BP 142/83; PULSE 82; RESP 18; O2SAT 97
[2024-07-09 14:56] LABS: Basophils Absolute Auto 0.1 K/mm3 (0.0-0.1); Basophils Percent Auto 0.7 % (0.2-1.2); Eosinophils Absolute Auto 0.3 K/mm3 (0-0.3); Eosinophils Percent Auto 2.6 % (0-4.4); Hematocrit 39.7 % (37.0-47.0); Hemoglobin 12.9 g/dL (12.0-15.0); Immature Granulocyte Absolute 0.03 K/mm3 (0.00-0.031); Immature Granulocyte Percent A 0.3 % (0-0.5); Lymphocytes Absolute Auto 2.16 K/mm3 (0.9-3.2); Lymphocytes Percent Auto 21.9 % (18.3-44.2); Mean Corpuscular HGB Conc 32.5 g/dl (32-36); Mean Corpuscular Hemoglobin 28.7 pg (26-34); Mean Corpuscular Volume 88.2 fl (80-100); Mean Platelet Volume 9.3 fl (7.4-10.4); Monocytes Absolute Auto 0.8 K/mm3 (0.1-0.6); Monocytes Percent Auto 8.3 % (2.6-8.5); Neutrophils Absolute Auto 6.5 K/mm3 (1.3-6.7); Neutrophils Percent Auto 66.2 % (45.5-73.1); Platelet Count Result 378 k/mm3 (150-375); Red Cell Distribution Width 13.3 % (11.5-14.5); White Blood Count 9.9 K/mm3 (4.5-10.0)
[2024-07-09 15:05] LABS: Alanine Aminotransferase 35 U/L (6-35); Albumin Level 4.5 g/dL (3.5-5.1); Alkaline Phosphatase 71 U/L (38-126); Anion Gap 9 mmol/L (4-12); Aspartate Amino Transferase 35 U/L (14-36); Bilirubin,Total 0.8 mg/dL (0.2-1.3); Blood Urea Nitrogen 13 mg/dL (7-17); Calcium 9.2 mg/dL (8.4-10.2); Carbon Dioxide 25 mmol/L (22-30); Chloride 103 mmol/L (98-107); Estimated CRCL calculation 120 ml/min; Estimated Glomerular Filt Rate > 60; Glucose 97 mg/dL (65-110); Potassium 4.1 mmol/L (3.4-5.0); Sodium 137 mmol/L (137-145)
[2024-07-09 15:07] LABS: Partial Thromboplastin Time 25.2 Seconds (22.3-36.8); Prothrombin Time 13.4 Seconds (11.1-14.7)
[2024-07-09 15:28] VITALS: BP 148/90; PULSE 84; RESP 19; O2SAT 100
--- NOTE | 2024-07-09 16:34 | ED_ITS ---
HPI - GI Bleed General Chief complaint: GI Bleed Stated complaint: blood in stool Time Seen by Provider: 07/09/24 16:33 Source: patient Mode of arrival: ambulatory Limitations: no limitations History of Present Illness HPI Narrative: 49 years old white female came to the ED complaining of loose stool once a day for the last 3-4 days containing fresh red bright blood. Complaining of slight left lower quadrant tenderness, she denies any fever or chills or nausea or vomiting. Patient started on aspirin and Plavix 5 days ago because of stroke. Patient denies any rectal pain or history of GI bleed Related Data Home Medications ?Medication ?Instructions ?Recorded ?Confirmed ?Last Taken ?Type levothyroxine 25 mcg tablet 25 mcg PO DAILY 03/10/19 07/05/24 07/04/24 08:00 History 25 mcg bupropion HCl 100 mg tablet 150 mg PO DAILY 07/05/24 07/05/24 07/05/24 08:00 History 150 mg cetirizine 10 mg capsule (All Day 10 mg PO DAILY PRN allergy 07/05/24 07/05/24 07/04/24 08:00 History Allergy (cetirizine)) 10 mg omeprazole 20 mg capsule,delayed 20 mg PO DAILY heartburn/reflux 07/05/24 07/05/24 07/04/24 08:00 History release 20 mg Allergies Allergy/AdvReac Type Severity Reaction Status Date / Time Penicillins Allergy Unknown Unknown Verified 07/09/24 15:26 peanut Allergy Anaphylaxis Verified 07/09/24 15:26 Review of Systems 2 Review of Systems: All systems reviewed & are unremarkable except as noted in HPI and below PMFSH Past Medical History Medical History History of depression History of hypothyroidism Osteoarthritis of knee Rheumatoid arthritis Surgical History Surgical History History of section 1993, 2008, 2011 Previous back surgery Family History Family History Grandparent Diabetes mellitus Social History Social History Smoking status: Never smoker Second hand tobacco smoke exposure: No Alcohol intake: never Substance use type: does not use Do You Feel Safe in your Home?: Yes Lack of Transportation: No Lack of Food: Never True Current Housing: I Have Housing Concerned About Future Housing: No Difficulty Paying Gas/Electric Bills: No Difficulty Paying for Meds: No Currently Unemployed: No Education: Associate Degree Difficulty w/ Childcare or Family Care: No Spiritual care concerns: Yes (Congregational - no blood products) Exam 2 Narrative: General appearance: Well-developed, well-nourished Skin: Normal color Head: Normocephalic, nontraumatic Eyes: Clear conjunctiva ENT: Oropharynx normal, ears normal, nose normal Neck: Supple, nontender Chest and respiratory: Airway patent, no respiratory distress, no accessory muscle use Heart: Regular rate/rhythm Abdomen: Soft, nontender, no organomegaly, quiet bowel sounds rectal exam showing pinkish liquidy stool, guaiac positive Vascular: Normal peripheral pulses, normal capillary refill. Musculoskeletal: Normal range of motion, nontender back Neurologic: Alert and oriented ?3, WOMEN'S STUDIES PROFESSOR is normal as tested, no gross motor deficit Course Consultations Consultation #1: dr yuan Outpatient follow-up Date: 07/09/24 Consultation #2: dr yancey Stop Plavix Date: 07/09/24 Vital Signs Vital signs: Vital Signs Temperature 36.7 C 07/09/24 13:39 Pulse Rate 80 07/09/24 13:39 Respiratory Rate 19 07/09/24 13:39 Blood Pressure 178/85 H 07/09/24 13:39 Pulse Oximetry 98 07/09/24 13:39 Oxygen Delivery Room Air 07/09/24 13:39 Temperature 36.7 C 07/09/24 13:39 Pulse Rate 84 07/09/24 15:28 Respiratory Rate 19 07/09/24 15:28 Blood Pressure 148/90 H 07/09/24 15:28 Pulse Oximetry 100 07/09/24 15:28 Oxygen Delivery Room Air 07/09/24 13:39 MDM - GI Bleed MDM Narrative Medical decision making narrative: Patient presents with rectal bleed Vital signs showing blood pressure 178/85 otherwise within normal limit Physical examination positive for rectal bleed Differential diagnosis lower GI bleed, anemia, coagulopathy Blood workup today includes CBC, CMP showed hemoglobin of 12.9 which is much better compared to the previous records, platelet 378 otherwise within normal limit Patient is hemodynamically stable, H&H within normal limit, stable rectal bleed suspected, the The plan to stop Plavix discussed with dr yancey Should be scheduled for colonoscopy discussed with Dr. yuan. Discharged home Differential Diagnosis Differential diagnosis: Likely other (As above) Medical Records Attestation: I reviewed the patient's medical records. Lab Data Attestation: I reviewed the patient's lab results. 07/09/24 14:50 07/09/24 14:50 Labs: Lab Results 07/09/24 Range/Units 14:50 WBC 9.9 (4.5-10.0) K/mm3 RBC 4.50 (4.2-5.4) M/mm3 Hgb 12.9 (12.0-15.0) g/dL Hct 39.7 (37.0-47.0) % MCV 88.2 (80-100) fl MCH 28.7 (26-34) pg MCHC 32.5 (32-36) g/dl RDW 13.3 (11.5-14.5) % Plt Count 378 H (150-375) k/mm3 MPV 9.3 (7.4-10.4) fl Immature Gran % (Auto) 0.3 (0-0.5) % Neut % (Auto) 66.2 (45.5-73.1) % Lymph % (Auto) 21.9 (18.3-44.2) % [place] % (Auto) 8.3 (2.6-8.5) % Eos % (Auto) 2.6 (0-4.4) % Baso % (Auto) 0.7 (0.2-1.2) % Lymph # (Auto) 2.16 (0.9-3.2) K/mm3 [place] # (Auto) 0.8 H (0.1-0.6) K/mm3 Eos # (Auto) 0.3 (0-0.3) K/mm3 Baso # (Auto) 0.1 (0.0-0.1) K/mm3 Abs Immat Gran (auto) 0.03 (0.00-0.031) K/mm3 Absolute Neuts (auto) 6.5 (1.3-6.7) K/mm3 Absolute Nucleated RBC 0.000 (0.0-0.012) K/mm3 Nucleated RBC % 0.0 (0.0-0.2) % PT 13.4 (11.1-14.7) Seconds INR 1.0 APTT 25.2 (22.3-36.8) Seconds Sodium 137 (137-145) mmol/L Potassium 4.1 (3.4-5.0) mmol/L Chloride 103 (98-107) mmol/L Carbon Dioxide 25 (22-30) mmol/L Anion Gap 9 (4-12) mmol/L BUN 13 (7-17) mg/dL Creatinine 0.68 L (0.7-1.0) mg/dL Estim Creat Clear Calc 120 ml/min Estimated GFR > 60 (59 - ) Glucose 97 (65-110) mg/dL Calcium 9.2 (8.4-10.2) mg/dL Total Bilirubin 0.8 (0.2-1.3) mg/dL AST 35 (14-36) U/L ALT 35 (6-35) U/L Alkaline Phosphatase 71 (38-126) U/L Total Protein 8.0 (6.3-8.2) g/dL Albumin 4.5 (3.5-5.1) g/dL Blood Type A Positive Antibody Screen Negative Critical Care Time Critical Care Time Critical Care Time: No Discharge Plan Discharge Clinical Impression: Bright red rectal bleeding Patient Disposition: Home Condition: Stable Instructions: Rectal Bleeding (ED) Additional Instructions: Return if symptoms are worsening , call your family physician for appointment, take Tylenol as as needed for aches and pain, continue home medications. Hold Plavix Continue aspirin Encourage fluid intake Patient Language: Bahraini Prescriptions: No Action levothyroxine 25 mcg tablet 25 mcg PO DAILY bupropion HCl 100 mg tablet 150 mg PO DAILY Rx Instructions: orally daily; All Day Allergy (cetirizine) 10 mg capsule 10 mg PO DAILY PRN (Reason: allergy) omeprazole 20 mg capsule,delayed release(DR/EC) 20 mg PO DAILY atorvastatin 40 mg Tablet 40 mg PO DAILY Qty: 90 0RF clopidogrel 75 mg Tablet 75 mg PO QAM Qty: 90 0RF aspirin [Children's Aspirin] 81 mg Tablet,Chewable 81 mg PO DAILY@0800 Qty: 90 0RF lisinopril 10 mg tablet 10 mg PO DAILY Qty: 90 0RF metformin 500 mg tablet 500 mg PO DAILY Qty: 90 0RF Follow-up/Referrals: Adis Yuan MD [Physician] - 07/10/24 Shalonda Freedman APRN [Primary Care Provider] -
--- OUTSIDE RECORDS SUMMARY | 2024-07-09 17:18 | XMS_ITS | Clinical Summary ---
Author Organization [facility] Address [address] [place] [address] Care Team Providers Care Semiconductor Packages Tester Name Role Phone Neftaly Elliott MD Primary Care Provider [phone] Allergies Active Allergy Reactions Criticality Noted Date Comments Peanut (Diagnostic) Anaphylaxis High 07/04/2024 Penicillins Unknown 07/04/2024 Medications levothyroxine (SYNTHROID) 25 MCG tablet Take 1 tablet (25 mcg total) by mouth every morning. 04/18/2024 Active Encounters Date Type Department Care Team Description 07/04/2024 9:17 PM CDT - 07/04/2024 10:50 PM CDT Emergency [facility] Emergency Services [address] [place] [address] [address] Garcia, Stress; Psychiatric Problem Discharge Disposition: Home or Self Care (Routine Discharge) 07/04/2024 Travel 05/08/2024 8:15 AM PHOTO CARTOGRAPHER - 05/08/2024 11:59 PM PHOTO CARTOGRAPHER Hospital Encounter [facility] Mammography [address] [place] [address] Jah Faria MD Discharge Disposition: Home or [...] Sex Assigned at Female 05/01/2024 12:53 PM PHOTO CARTOGRAPHER Legal Sex Female 4:08 PM CDT Gender [...] ALICIA THERESA DIGI Routine 05/08/2024 8:47 AM PHOTO CARTOGRAPHER Encounter for screening mammogram for malignant neoplasm of breast HEPATITIS C ANTIBODY Routine 01/15/2018 5:18 PM CDT HPV MRNA E6/E7 Routine 08/21/2017 4:54 PM CDT from Last 3 Months or Most Recently Relevant to Health Maintenance Results * MG SCREENING W ALICIA THERESA DIGI (05/08/2024 8:47 AM PHOTO CARTOGRAPHER) Anatomical Region Laterality Modality Breast Bilateral Mammography 05/08/2024 10:3 1 AM PHOTO CARTOGRAPHER Impressions 05/08/2024 10:38 AM PHOTO CARTOGRAPHER ===== IMPRESSION: ===== 1. Stable mammographic appearance with no new findings to suggest malignancy in either breast. Assessment: ACR BI-RADS 1 - NEGATIVE Recommendation: 1:Routine Screening Bilateral Comments: Ordered By: JAH FARIA Interpreted By: Abdi Larson, 05/08/2024 10:31 AM Narrative 05/08/2024 10:38 AM PHOTO CARTOGRAPHER [address] [place] [address] EXAMINATION: Digital bilateral screening mammogram with 3-D [...] (01/15/2018 5:18 PM CDT) Pathologist [facility] HEPATITIS C AB NON-REACTI VE NON-REACTI VE 01/16/2018 3:01 PM CDT [facility] SERUM OR PLASMA SPECIMEN / Unknown 01/15/2018 5:18 PM CDT 01/15/2018 6:34 PM CDT Generic Conversion Md [facility] Final R esult [facility] [address] [place] [address], * HPV MRNA E6/E7 (08/21/2017 4:54 PM CDT) Pathologist [facility] HPV MRNA E6/E7 Not Detected NOT DETECTED 08/24/2017 3:11 PM CDT [employer] TALIA SPENCER Comment: This test was performed using the APTIMA(R) HPV Assay([employer]This assay detects E6/E7 viral messenger RNA (mRNA)from 14 high-risk HPV types (16,18,31,33,35,39,45,51,52,56,58,59,66,68).For additional information please refer to:http://education.eWings.com.MoBeam/faq/UXS501a4(This link is being provided for informational/educational purposes only.)The analytical performance characteristics of thisassay have been determined by [employer], [place]. The modificationshave not been cleared or approved by the FDA. Thisassay has been validated pursuant to the CLIAregulations and is used for clinical purposes.Test Performed by [facility],[address] [place] [id number] Dodge M.D., Ph.D., Director of [phone], [facility] [id number] FLUID SPECIMEN / Unknown 08/21/2017 4:54 PM CDT 08/21/2017 4:54 PM CDT us Generic Conversion Md [facility]/CYTOLOGY NITZA WOOD Final Result alph[employer]ides [facility] [address] [place] [address], [place] [phone] from Last 3 Months or Most Recently Relevant to Health Maintenance Insurance GENERIC - MEDICAID Care Teams Semiconductor Packages Tester Relationship Specialty Start Date End Date Neftaly Elliott MD [address] [place] [address] PCP - General FAMILY PRACTICE 09/01/18
--- OUTSIDE RECORDS SUMMARY | 2024-07-09 17:18 | XMS_ITS | Clinical Summary ---
Author Organization [facility] Care Team Providers Care Brilliandeer Looper Name Role Phone Unavailable Primary Care Provider Unavailabl e Social History Tobacco Use Types Packs/Day Years Used Date Smoking Tobacco: Never Assessed Comments Unknown Sex and Gender Information Value Date Recorded Sex Assigned at Not on file Legal Sex Female 11:06 AM PR INTERNSHIP Gender Identity Not on file Sexual Orientation [...]
[2024-07-09 17:29] VITALS: BP 156/80; PULSE 89; RESP 17; O2SAT 98
== END 2024-07-09 17:30 | disposition home or self-care (01) ==
PROVIDERS: Emergency Medicine; Emergency Provider Emergency Medicine; PCP Nurse Practitioner Family
DX: K62.5 Hemorrhage of anus and rectum (principal); E03.9 Hypothyroidism, unspecified; M06.9 Rheumatoid arthritis, unspecified; F32.A Depression, unspecified
CPT/HCPCS: 36415; 80053; 85025; 85610; 85730; 86850; 86900; 86901; 99283

== ENCOUNTER 2025-02-19 10:56 | Emergency (ER) | payer OTHER, SELFPAY ==
--- OUTSIDE RECORDS SUMMARY | 2025-02-19 10:59 | XMS_ITS | Clinical Summary ---
Author Organization [facility] Address [address] [place] [address] Care Team Providers Care Director Counseling Bureau Name Role Phone Neftaly Elliott MD Primary Care Provider [phone] Allergies Active Allergy Reactions Criticality Noted Date Comments Peanut (Diagnostic) Anaphylaxis High 07/04/2024 Penicillins Unknown 07/04/2024 Medications levothyroxine (SYNTHROID) 25 MCG tablet Take 1 tablet (25 mcg total) by mouth every morning. 04/18/2024 Active Family History Medical History Relation Comments Breast [...] Sex Assigned at Female 05/01/2024 12:53 PM BAND TACKER Legal Sex Female 4:08 PM CDT Gender [...] 9:59 PM CDT Height 175.3 cm (5' 9) 07/04/2024 9:59 PM CDT Body Mass Index [...] with HPV 08/21/2022 COVID-19 Vaccine ( season) 2024 07/28/2021, 02/18/2021, 06/30/2020, Additional history exists Influenza Adult (#1) 2024 01/02/2022, 01/18/2020, 03/16/2019, Additional history exists Mammogram Screening 05/08/2026 05/08/2024, 05/23/2023, 04/22/2023, Additional history exists Hepatitis C Completed 01/15/2018 Hepatitis A Vaccines Aged Out No long er eligible based on patient's age to complete this topic Meningococcal B Vaccine Aged Out No l [...] ALICIA THERESA DIGI Routine 05/08/2024 8:47 AM BAND TACKER Encounter for screening mammogram for malignant neoplasm of breast HEPATITIS C ANTIBODY Routine 01/15/2018 5:18 PM CDT HPV MRNA E6/E7 Routine 08/21/2017 4:54 PM CDT from Last 3 Months or Most Recently Relevant to Health Maintenance Results * MG SCREENING W ALICIA THERESA DIGI (05/08/2024 8:47 AM BAND TACKER) Anatomical Region Laterality Modality Breast Bilateral Mammography 05/08/2024 10:3 1 AM BAND TACKER Impressions 05/08/2024 10:38 AM BAND TACKER ===== IMPRESSION: ===== 1. Stable mammographic appearance with no new findings to suggest malignancy in either breast. Assessment: ACR BI-RADS 1 - NEGATIVE Recommendation: 1:Routine Screening Bilateral Comments: Ordered By: JAH FARIA Interpreted By: Abdi Larson, 05/08/2024 10:31 AM Narrative 05/08/2024 10:38 AM BAND TACKER [address] [place] [address] EXAMINATION: Digital bilateral screening mammogram with 3-D [...] calcifications in either breast to suggest malignancy. us Jah Faria MD MAMMO Final Resul t * HEPATITIS C ANTIBODY (01/15/2018 5:18 PM CDT) HEPATITIS C AB NON-REACTI VE NON-REACTI VE 01/16/2018 3:01 PM CDT [facility] SERUM OR PLASMA SPECIMEN / Unknown 01/15/2018 5:18 PM CDT 01/15/2018 6:34 PM CDT Generic Conversion Md [facility] Final R esult [facility] [address] [place] [address], * HPV MRNA E6/E7 (08/21/2017 4:54 PM CDT) HPV MRNA E6/E7 Not Detected NOT DETECTED 08/24/2017 3:11 PM CDT [employer] TALIA SPENCER Comment: This test was performed using the APTIMA(R) HPV Assay([employer]This assay detects E6/E7 viral messenger RNA (mRNA)from 14 high-risk HPV types (16,18,31,33,35,39,45,51,52,56,58,59,66,68).For additional information please refer to:http://education.Edison Pharmaceuticals/faq/SMT889g9(This link is being provided for informational/educational purposes only.)The analytical performance characteristics of thisassay have been determined by [employer], [place]. The modificationshave not been cleared or approved by the FDA. Thisassay has been validated pursuant to the CLIAregulations and is used for clinical purposes.Test Performed by [facility],[employer] [facility],[address] [place] [id number] Dodge M.D., Ph.D., Director of [phone], CLIA [id number] FLUID SPECIMEN / Unknown 08/21/2017 4:54 PM CDT 08/21/2017 4:54 PM CDT us Generic Conversion Md [facility]CYTOLOGY ORDE NINA Final Result Performing Organization Address City/[facility]/ZIP Co de Phone Number [employer] [place] [address], [place] [phone] from Last 3 Months or Most Recently Relevant to Health Maintenance Insurance GENERIC - MEDICAID MEDICAID AET[employer] Care Teams Director Counseling Bureau Relationship Specialty Start Date End Date Neftaly Elliott MD [address] [place] [address] PCP - General FAMILY PRACTICE 09/01/18
--- OUTSIDE RECORDS SUMMARY | 2025-02-19 11:02 | XMS_ITS | Clinical Summary ---
Author Organization [facility] Care Team Providers Care Steam Bone Press Tender Name Role Phone Unavailable Primary Care Provider Unavailabl e Social History Tobacco Use Types Packs/Day Years Used Date Smoking Tobacco: Never Assessed Comments Unknown Sex and Gender Information Value Date Recorded Sex Assigned at Not on file Legal Sex Female 11:06 AM INSPECTOR PLUMBING Gender Identity Not on file Sexual Orientation Not on file Plan of Treatment Health Maintenance Due Date Last Done Comments Hepatitis C Virus (HCV) Screening 1977 TdaP Immunization 1977 Hepatitis B Immunization (1 of 3 - 19+ 3-dose series) 1996 Pap Smear 1998 Cervical Cancer Screening (CCS) 2007 HPV/Cotest 2007 Cologuard 2022 Colonoscopy 2022 Colorectal Cancer Screening 2022 Immunochemical Fecal Occult Blood 2022 Influenza Immunization (#1) 2024 SARS-COV-2 Immunization ( season) 2024 Respiratory Syncytial Virus (RSV) Immunization (Adult) (1 - 1-dose 75+ series) 2052 Human Papillomavirus (HPV) Immunization Aged Out No longer eligible b ased on patient's age to complete this topic Meningococcal Immunization (ACWY) Aged Out No longer eligible based on patient's age to complete this topic Pneumococcal Immunization Combined Aged Out No longer eligible based on patient's age to complete this topic Rotavirus Immunization Aged Out No lo nger eligible based on patient's age to complete this topic
[2025-02-19 11:09] VITALS: BP 119/66; PULSE 82; RESP 18; TEMP 36.1; O2SAT 98
[2025-02-19 11:21] LABS: EDSTREPNEGPOS1 Positive (Negative)
--- NOTE | 2025-02-19 11:33 | ED.URI ---
HPI - URI/Sore Throat General Chief Complaint: Upper Respiratory Infection Stated Complaint: R/O Strep Source: patient Mode of arrival: ambulatory Limitations: no limitations History of Present Illness HPI Narrative: this is a pleasant 49-year-old female who presents to the urgent care with complaints with throat. Patient states she began noticing it Saturday morning when she awoke, and has continued to worsen. 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 Patient was concerned she may have strep throat. She has been trying with uyyt-tcd-xumefys medications with no relief. Painful swallowing, chills, and general fatigue. No fever. MD elicited complaint: sore throat Onset (ago): day(s) (3) Consistency: constant Severity: moderate Pain scale (0-10): 3 Able to tolerate fluids by mouth: Yes Exacerbating factors: swallowing Relieving factors: nothing Context: sick contacts Associated symptoms: denies other symptoms Treatments prior to arrival: acetaminophen and ibuprofen Related Data Home Medications ?Medication ?Instructions ?Recorded ?Confirmed ?Last Taken ?Type cetirizine 10 mg capsule (All Day 10 mg PO DAILY PRN allergy 07/05/24 02/16/25 07/04/24 08:00 History Allergy (cetirizine)) 10 mg dimenhydrinate 50 mg tablet 50 mg PO Q4-6H PRN 07/10/24 02/16/25 Unknown History (Dramamine) Allergies Allergy/AdvReac Type Severity Reaction Status Date / Time peanut Allergy Severe Anaphylaxis Verified 02/19/25 11:02 Penicillins Allergy Mild Rash Verified 02/19/25 11:02 Review of Systems Review of Systems: All systems reviewed & are unremarkable except as noted in HPI and below PMFSH Past Medical History Medical History Constipation Screening for colon cancer Dyslipidemia On senior care drug therapy Prediabetes Encounter to establish care Sleep apnea Obstructive sleep apnea syndrome in adult Osteoarthritis of knee Rheumatoid arthritis Surgical History Surgical History History of section 1993, 2008, 2011 Previous back surgery Family History Family History Grandparent Diabetes mellitus Mother Cerebrovascular accident Hypertension Father Diabetes mellitus Hypertension Thyroid disease Obstructive sleep apnea Social History Social History Smoking status: Never smoker Second hand tobacco smoke exposure: No Alcohol intake: never Substance use type: does not use Lack of Transportation: No Lack of Food: Never True Current Housing: I Have Housing Concerned About Future Housing: No Difficulty Paying Gas/Electric Bills: No Difficulty Paying for Meds: No Currently Unemployed: No Education: Associate Degree Difficulty w/ Childcare or Family Care: No Living arrangements: with family Spiritual care concerns: Yes (Confucianism - no blood products) Agree to blood products: No Exam Const: General: ill appearing Nutritional Appearance: well nourished Orientation/consciousness: patient oriented x3 Limitations: no limitations HENMT: Head: normal to inspection Ears: external ears normal Face/Nose/Sinus: Normal external nose present Face and sinus: normal facial exam Mouth: Yes Normal oral and palatal mucosa present Teeth and gingiva: dentition normal Throat: uvula midline, abnormal tonsil bilateral and posterior oropharynx abnormal erythema and exudates Eyes: Conjunctivae: conjunctivae normal Pupils: Equal, round and reactive pupils present EOM: EOMs intact bilaterally Neck: Neck: normal visual inspection and no lymphadenopathy Chest: Chest palpation & inspection: normal inspection of the chest Resp: Effort & Inspection: normal respiratory effort Auscultation: clear to auscultation bilaterally Cardio: Rate: regular rate Rhythm: regular rhythm GI: GI Palp: Yes Soft to palpation Auscultation: normal bowel sounds Back/Spine/Pelvis: Back: no CVA tenderness Skin: General skin exam: normal color Rashes: no rashes Wounds: no wounds Neuro: General: patient oriented x3 Cranial nerves: Yes Nystagmus not present Speech: normal speech Gait exam (Neuro): Normal gait present Extrem: General: normal to inspection Psych: Mental Status: mental status grossly normal Affect: normal affect Attitude: cooperative Course Course Emergency Course: this is a pleasant 49-year-old female who presents to the urgent care with complaints with throat. Patient states she began noticing it Saturday morning when she awoke, and has continued to worsen. 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 Patient was concerned she may have strep throat. She has been trying with dzjk-bqx-ockromz medications with no relief. Painful swallowing, chills, and general fatigue. No fever. strep a rapid test was positive, patient instructed on testing and exam findings, as well as treatment options. educated to increase fluids, rest, take antibiotic as prescribed, take steroid as prescribed, continue Tylenol and ibuprofen as needed for pain and discomfort, cough drops as needed for throat relief, warm fluids will help with throat tenderness, Try with antibiotic to reduce GI upset, follow-up with her primary care provider next 3-4 days for further evaluation exam, return to the emergency department or urgent care with any worrisome sign or symptom. Level of Care: Express Care Visit Vital Signs Vital signs: Vital Signs Temperature 96.9 F L 02/19/25 11:09 Pulse Rate 82 02/19/25 11:09 Respiratory Rate 18 02/19/25 11:09 Blood Pressure 119/66 02/19/25 11:09 Pulse Oximetry 98 02/19/25 11:09 Oxygen Delivery Room Air 02/19/25 11:09 Temperature 96.9 F L 02/19/25 11:09 Pulse Rate 82 02/19/25 11:09 Respiratory Rate 18 02/19/25 11:09 Blood Pressure 119/66 02/19/25 11:09 Pulse Oximetry 98 02/19/25 11:09 Oxygen Delivery Room Air 02/19/25 11:09 MDM - URI/Sore Throat MDM Narrative Medical decision making narrative: this is a pleasant 49-year-old female who presents to the urgent care with complaints with throat. Patient states she began noticing it Saturday morning when she awoke, and has continued to worsen. 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 Patient was concerned she may have strep throat. She has been trying with sbmk-zyq-njmshrt medications with no relief. Painful swallowing, chills, and general fatigue. No fever. strep a rapid test was positive, patient instructed on testing and exam findings, as well as treatment options. educated to increase fluids, rest, take antibiotic as prescribed, take steroid as prescribed, continue Tylenol and ibuprofen as needed for pain and discomfort, cough drops as needed for throat relief, warm fluids will help with throat tenderness, Try with antibiotic to reduce GI upset, follow-up with her primary care provider next 3-4 days for further evaluation exam, return to the emergency department or urgent care with any worrisome sign or symptom. Differential Diagnosis Differential diagnosis: Likely upper respiratory infection, sinusitis and pharyngitis Medical Records Attestation: I reviewed the patient's medical records. Lab Data Attestation: I reviewed the patient's lab results. Labs: Lab Results 02/19/25 Range/Units 11:20 POC Grp A Strep Screen Positive (Negative) Discharge Plan Discharge Clinical Impression: Acute streptococcal pharyngitis Patient Disposition: Home Condition: Stable Instructions: Antibiotic Form, Strep Throat (ED) Additional Instructions: increase fluids rest take antibiotic as prescribed take steroid as prescribed continue Tylenol and ibuprofen as needed for pain and discomfort cough drops as needed for throat relief warm fluids will help with throat tenderness Try with antibiotic to reduce GI upset follow-up with her primary care provider next 3-4 days for further evaluation exam return to the emergency department or urgent care with any worrisome sign or symptom Patient Language: Estonian Prescriptions: New prednisone 10 mg tablet 10 mg PO BID 5 Days Qty: 10 0RF azithromycin 250 mg tablet See Rx Instructions .ROUTE .COMPLEX Qty: 6 0RF Rx Instructions: For 250 mg dose pack: take 500 mg today (day 1), then 250 mg for 4 days (days 2-5) No Action dimenhydrinate [Dramamine] 50 mg tablet 50 mg PO Q4-6H PRN aspirin [Children's Aspirin] 81 mg tablet,chewable 81 mg PO DAILY@0800 Qty: 90 1RF losartan 25 mg tablet 25 mg PO DAILY Qty: 90 2RF Wegovy 1 mg/0.5 mL pen injector See Rx Instructions .ROUTE .COMPLEX Qty: 2 1RF Dose Instruction: INJECT 1 MG SUBCUTANEOUSLY ONCE A WEEK ADMINISTER WEEKS 9-12 OF THERAPY Rx Instructions: INJECT 1 MG SUBCUTANEOUSLY ONCE A WEEK ADMINISTER WEEKS 9-12 OF THERAPY All Day Allergy (cetirizine) 10 mg capsule 10 mg PO DAILY PRN (Reason: allergy) atorvastatin 40 mg tablet 40 mg PO DAILY Qty: 90 1RF clopidogrel [Plavix] 75 mg tablet 75 mg PO DAILY Qty: 90 1RF levothyroxine 25 mcg tablet 25 mcg PO DAILY Qty: 90 1RF metformin 500 mg tablet 500 mg PO DAILY Qty: 90 1RF trazodone 50 mg tablet See Rx Instructions .ROUTE .COMPLEX Qty: 180 1RF Dose Instruction: TAKE 1 TO 2 TABLETS BY MOUTH AT BEDTIME NEEDED FOR INSOMNIA FOR SLEEP Rx Instructions: TAKE 1 TO 2 TABLETS BY MOUTH AT BEDTIME NEEDED FOR INSOMNIA FOR SLEEP bupropion HCl 100 mg tablet 150 mg PO BID Qty: 270 0RF Follow-up/Referrals: Alejandra Lagos APRN [Primary Care Provider, Internal Medicine] Time of Disposition: 11:36
== END 2025-02-19 11:41 | disposition home or self-care (01) ==
PROVIDERS: Emergency Provider Nurse Practitioner Family; PCP Nurse Practitioner Family
DX: J02.0 Streptococcal pharyngitis (principal); E78.5 Hyperlipidemia, unspecified; R73.03 Prediabetes; M06.9 Rheumatoid arthritis, unspecified
CPT/HCPCS: 87880; 99213; G0463

== ENCOUNTER 2025-02-24 16:26 | Outpatient (CLI) | payer OTHER, SELFPAY ==
--- NOTE | ~2025-02-24 | US_ITS ---
EXAMINATION: US soft tissue head and neck, 02/24/2025 16:35 RISK MANAGEMENT SPECIALIST HISTORY: scalp cyst Comparison: None Technique: Bender-scale and color Doppler images were obtained. Findings: Correlating with the palpable area within the subcutaneous tissues there is a complex focus measuring 7 x 4 x 6 mm without abnormal flow IMPRESSION: Nonspecific complex subcutaneous lesion possible sebaceous cyst. Other etiologies not excluded. Follow-up suggested to assess stability or resolution Reviewed, dictated and finalized at location P. MANAGEMENT SPECIALIST IMPRESSION: Nonspecific complex subcutaneous lesion possible sebaceous cyst. Ot her etiologies not excluded. Follow-up suggested to assess stability or resolut ion
--- OUTSIDE RECORDS SUMMARY | 2025-02-24 17:12 | XMS_ITS | Clinical Summary ---
Author Organization [facility] Address [address] [place] [address] Care Team Providers Care Slab Grinder Name Role Phone Neftaly Elliott MD Primary Care Provider [phone] Allergies Active Allergy Reactions Criticality Noted Date [...] Sex Assigned at Female 05/01/2024 12:53 PM DAIRY CHEMIST Legal Sex Female 4:08 PM CDT Gender [...] ALICIA THERESA DIGI Routine 05/08/2024 8:47 AM DAIRY CHEMIST Encounter for screening mammogram for malignant neoplasm of breast HEPATITIS C ANTIBODY Routine 01/15/2018 5:18 PM CDT HPV MRNA E6/E7 Routine 08/21/2017 4:54 PM CDT from Last 3 Months or Most Recently Relevant to Health Maintenance Results * MG SCREENING W ALICIA THERESA DIGI (05/08/2024 8:47 AM DAIRY CHEMIST) Anatomical Region Laterality Modality Breast Bilateral Mammography 05/08/2024 10:3 1 AM DAIRY CHEMIST Impressions 05/08/2024 10:38 AM DAIRY CHEMIST ===== IMPRESSION: ===== 1. Stable mammographic appearance with no new findings to suggest malignancy in either breast. Assessment: ACR BI-RADS 1 - NEGATIVE Recommendation: 1:Routine Screening Bilateral Comments: Ordered By: JAH FARIA Interpreted By: Abdi Larson, 05/08/2024 10:31 AM Narrative 05/08/2024 10:38 AM DAIRY CHEMIST [address] [place] [address] EXAMINATION: Digital bilateral screening mammogram with 3-D [...] VE NON-REACTI VE 01/16/2018 3:01 PM CDT [facility] SERUM OR PLASMA SPECIMEN / Unknown 01/15/2018 5:18 PM CDT 01/15/2018 6:34 PM CDT Generic Conversion Md [facility] Final R esult [facility] [address] [place] [address], * HPV MRNA E6/E7 (08/21/2017 4:54 PM CDT) HPV MRNA E6/E7 Not Detected NOT DETECTED 08/24/2017 3:11 PM CDT [employer] TALIA SPENCER Comment: This test was performed using the APTIMA(R) HPV Assay([employer]This assay detects E6/E7 viral messenger RNA (mRNA)from 14 high-risk HPV types (16,18,31,33,35,39,45,51,52,56,58,59,66,68).For additional information please refer to:http://education.Ingenuity Systems/faq/GCD900d2(This link is being provided for informational/educational purposes only.)The analytical performance characteristics of thisassay have been determined by [facility], [place]. The modificationshave not been cleared or approved by the FDA. Thisassay has been validated pursuant to the CLIAregulations and is used for clinical purposes.Test Performed by [facility] [place],[employer] [facility],[address] [place] [id number] Dodge M.D., Ph.D., Director of [phone], CLIA [id number] FLUID SPECIMEN / Unknown 08/21/2017 4:54 PM CDT 08/21/2017 4:54 PM CDT us Generic Conversion Md [facility]/CYTOLOGY ORDE NINA Final Result Performing Organization Address City/[facility]/ZIP Co de Phone Number [employer] [place] [address], [place] [phone] from Last 3 Months or Most Recently Relevant to Health Maintenance Insurance GENERIC - MEDICAID MEDICAID AETNA Care Teams Slab Grinder Relationship Specialty Start Date End Date Neftaly Elliott MD [address] [place] [address] PCP - General FAMILY PRACTICE 09/01/18
--- OUTSIDE RECORDS SUMMARY | 2025-02-24 17:12 | XMS_ITS | Clinical Summary ---
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
== END 2025-02-24 16:27 | disposition home or self-care (01) ==
PROVIDERS: PCP Nurse Practitioner Family; Visit Provider Nurse Practitioner Family
DX: R22.0 Localized swelling, mass and lump, head (principal)
CPT/HCPCS: 76536

== ENCOUNTER 2025-03-17 00:17 | Day surgery (SDC) | payer OTHER, SELFPAY ==
[2025-02-26 13:42] VITALS: BMI 29.9
--- NOTE | 2025-02-26 14:13 | PC.NURSE ---
Spoke with patient regarding medication Plavix. Patient verbalizes understanding that the last dose is to be taken on 03/12/25 and the Endoscopist will instruct them when to restart after the procedure.
--- OUTSIDE RECORDS SUMMARY | 2025-03-17 00:20 | XMS_ITS | Clinical Summary ---
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 [employer] Legal Sex Female 4:08 PM CDT Gender [...] ALICIA THERESA DIGI Routine 05/08/2024 8:47 AM INSOLE TAPE STITCHER UCO Encounter for screening mammogram for malignant neoplasm of breast HEPATITIS C ANTIBODY Routine 01/15/2018 5:18 PM CDT HPV MRNA E6/E7 Routine 08/21/2017 4:54 PM CDT from Last 3 Months or Most Recently Relevant to Health Maintenance Results * MG SCREENING W ALICIA THERESA DIGI (05/08/2024 8:47 AM INSOLE TAPE STITCHER [employer]CO) Anatomical Region Laterality Modality Breast Bilateral Mammography 05/08/2024 10:3 1 AM INSOLE TAPE STITCHER UCO Impressions 05/08/2024 10:38 AM INSOLE TAPE STITCHER [employer]CO ===== IMPRESSION: ===== 1. Stable mammographic appearance with no new findings to suggest malignancy in either breast. Assessment: ACR BI-RADS 1 - NEGATIVE Recommendation: 1:Routine Screening Bilateral Comments: Ordered By: JAH FARIA Interpreted By: Abdi Larson, 05/08/2024 10:31 AM Narrative 05/08/2024 10:38 AM INSOLE TAPE STITCHER [employer] [address] [place] [address] EXAMINATION: Digital bilateral screening mammogram with 3-D [...] VE NON-REACTI VE 01/16/2018 3:01 PM CDT [facility] SERUM OR PLASMA SPECIMEN / Unknown 01/15/2018 5:18 PM CDT 01/15/2018 6:34 PM CDT Generic Conversion Md [facility] Final R esult [facility] [address] [place] [address], * HPV MRNA E6/E7 (08/21/2017 4:54 PM CDT) HPV MRNA E6/E7 Not Detected NOT DETECTED 08/24/2017 3:11 PM CDT [employer] TALIA SPENCER Comment: This test was performed using the APTIMA(R) HPV Assay([employer]This assay detects E6/E7 viral messenger RNA (mRNA)from 14 high-risk HPV types (16,18,31,33,35,39,45,51,52,56,58,59,66,68).For additional information please refer to:http://education.HighGround/faq/XJL495o0(This link is being provided for informational/educational purposes only.)The analytical performance characteristics of thisassay have been determined by [facility] [facility]. The modificationshave not been cleared or approved by the FDA. Thisassay has been validated pursuant to the CLIAregulations and is used for clinical purposes.Test Performed by [facility] [place],[employer] [facility],[address] [place] [id number] Dodge M.D., Ph.D., Director of [phone], CLIA [id number] FLUID SPECIMEN / Unknown 08/21/2017 4:54 PM CDT 08/21/2017 4:54 PM CDT us Generic Conversion Md [facility]/CYTOLOGY ORDE NINA Final Result Performing Organization Address City/[facility]/ZIP Co de Phone Number [employer] [place] [address], [place] [phone] from Last 3 Months or Most Recently Relevant to Health Maintenance Insurance GENERIC - MEDICAID MEDICAID AETNA Care Teams Talent Acquisition Coordinator Relationship Specialty Start Date End Date Neftaly Elliott MD [address] [place] [address] PCP - General FAMILY PRACTICE 09/01/18
--- OUTSIDE RECORDS SUMMARY | 2025-03-17 00:20 | XMS_ITS | Clinical Summary ---
Author Organization [facility] Care Team Providers Care Corporate Meeting Planner Name Role Phone Unavailable Primary Care Provider Unavailabl e Social History Tobacco Use Types Packs/Day Years Used Date Smoking Tobacco: Never Assessed Comments Unknown Sex and Gender Information Value Date Recorded Sex Assigned at Not on file Legal Sex Female 11:06 AM TEACHER'S ASSISTANT Gender Identity Not on file Sexual Orientation [...]
[2025-03-17 07:25] VITALS: BP 126/82; PULSE 85; RESP 16; TEMP 36.4; O2SAT 99
[2025-03-17 07:28] LABS: BEDSIDEPREGUCG Negative (Negative)
[2025-03-17] MEDS: LACTATED RINGERS 1,000 ML 150 ML IV CONT (07:32)
--- NOTE | 2025-03-17 07:56 | WPDANESEPPF ---
Anes - Initial Pre Proc Eval Procedure: Operation Date: 03/17/25 08:30 Proposed Procedures p EGD & Screening Colonoscopy - Nathen Bailey MD Date/Time: 03/17/25 07:56 Surgeon: Nathen Bailey MD Pre Op Diagnosis: Encounter for screening for malignant neoplasm of Patient Data Age: 49 Gender: F Height: 1.75 m Weight: 91.2 kg Last Vital Signs Temp 36.4 C L 03/17/25 07:25 Pulse 85 03/17/25 07:25 Resp 16 03/17/25 07:25 BP 126/82 03/17/25 07:25 Pulse Ox 99 03/17/25 07:25 O2 Del Method Room Air 03/17/25 07:25 Allergies Allergy/AdvReac Type Severity Reaction Status Date / Time peanut Allergy Severe Anaphylaxis Verified 03/17/25 07:09 Penicillins Allergy Mild Rash Verified 03/17/25 07:09 Home Medications ?Medication ?Instructions ?Recorded ?Confirmed ?Type cetirizine 10 mg capsule (All Day 10 mg PO DAILY PRN allergy 07/05/24 03/17/25 History Allergy (cetirizine)) dimenhydrinate 50 mg tablet 50 mg PO Q4-6H PRN dizziness or 07/10/24 02/26/25 History (Dramamine) vertigo aspirin 81 mg chewable tablet 81 mg PO DAILY@0800 #90 tabs 10/08/24 03/17/25 Rx (Children's Aspirin) atorvastatin 40 mg tablet 40 mg PO DAILY #90 tabs 12/24/24 03/17/25 Rx clopidogrel 75 mg tablet (Plavix) 75 mg PO DAILY #90 tabs 12/24/24 03/17/25 Rx levothyroxine 25 mcg tablet 25 mcg PO DAILY #90 tabs 12/24/24 03/17/25 Rx metformin 500 mg tablet 500 mg PO DAILY #90 tabs 12/24/24 03/17/25 Rx trazodone 50 mg tablet See Rx Instructions .Route 12/24/24 03/17/25 Rx .COMPLEX #180 tabs bupropion HCl 100 mg tablet 150 mg (1.5 x 100 mg) PO BID #270 01/12/25 03/17/25 Rx tabs semaglutide (weight loss) 1 mg/0.5 See Rx Instructions .Route 11/21/25 12/24/25 Rx mL subcutaneous pen injector .COMPLEX #2 mL (Wegovy) losartan 25 mg tablet 25 mg PO DAILY #90 tabs 02/16/25 03/17/25 Rx Laboratory Tests 03/17/25 03/17/25 07:25 07:29 POC Capillary Glucose 79 mg/dl (65-105) POC Urine HCG, Qual Negative (Negative) Patient hx anesthesia problems: none Family hx anesthesia problems: none Results Review: All pre-operative results and documents have been reviewed as part of the pre-operative evaluation. 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 Prediabetes Encounter to establish care Sleep apnea Obstructive sleep apnea syndrome in adult Osteoarthritis of knee Rheumatoid arthritis Surgical History Surgical History History of section 1993, 2008, 2011 Previous back surgery Family History Family History Grandparent Diabetes mellitus Mother Cerebrovascular accident Hypertension Father Diabetes mellitus Hypertension Thyroid disease Obstructive sleep apnea Social History Social History Smoking status: Never smoker Second hand tobacco smoke exposure: No Alcohol intake: never Substance use type: does not use Lack of Transportation: No Lack of Food: Never True Current Housing: I Have Housing Concerned About Future Housing: No Difficulty Paying Gas/Electric Bills: No Difficulty Paying for Meds: No Currently Unemployed: No Education: Associate Degree Difficulty w/ Childcare or Family Care: No Living arrangements: with family Spiritual care concerns: Yes (Mormon - no blood products) Agree to blood products: No Anes - Eval Final PreProcedure Day of Procedure 03/17/25 07:56 Patient weight: overweight Heart: regular rate and rhythm Lungs: clear to auscultation Airway: Mallampati scale class III Neurological: alert and oriented Last oral intake: >/= 8 hours ASA classification: III Emergent: no Anesthetic plan: proceed Anesthesia type and monitoring: general GIVS and standard monitoring Results Review: All pre-operative results and documents have been reviewed as part of the pre-operative evaluation. Informed Consent: The patient's anesthetic plan and its attendant risks and benefits were discussed with the patient/family/POA. Questions were solicited and answers provided to the satisfaction of the patient/family/POA.
--- NOTE | 2025-03-17 08:35 | PM.HPGS ---
History of Present Illness History of Present Illness Consent: Risks, benefits, and alternatives have been discussed and questions answered. Patient agrees to proceed with procedure. Chief complaint: Encounter for screening for malignant neoplasm of Narrative: Sravan Peck is a 49 year old female here for first screening colonoscopy and egd because choking after eating, better after lost weight with wegovy Review of Systems Review of Systems: All systems reviewed & are unremarkable except as noted in HPI and below PMFSH Past Medical History Medical History Constipation Screening for colon cancer Dyslipidemia On penitentiary drug therapy Prediabetes Encounter to establish care Sleep apnea Obstructive sleep apnea syndrome in adult Osteoarthritis of knee Rheumatoid arthritis Surgical History Surgical History History of section 1993, 2008, 2011 Previous back surgery Family History Family History Grandparent Diabetes mellitus Mother Cerebrovascular accident Hypertension Father Diabetes mellitus Hypertension Thyroid disease Obstructive sleep apnea Social History Social History Smoking status: Never smoker Second hand tobacco smoke exposure: No Alcohol intake: never Substance use type: does not use Lack of Transportation: No Lack of Food: Never True Current Housing: I Have Housing Concerned About Future Housing: No Difficulty Paying Gas/Electric Bills: No Difficulty Paying for Meds: No Currently Unemployed: No Education: Associate Degree Difficulty w/ Childcare or Family Care: No Living arrangements: with family Spiritual care concerns: Yes ([employer] - no blood products) Agree to blood products: No Meds Home Medications and Allergies Home Medications ?Medication ?Instructions ?Recorded ?Confirmed ?Type cetirizine 10 mg capsule (All Day 10 mg PO DAILY PRN allergy 07/05/24 03/17/25 History Allergy (cetirizine)) dimenhydrinate 50 mg tablet 50 mg PO Q4-6H PRN dizziness or 07/10/24 02/26/25 History (Dramamine) vertigo aspirin 81 mg chewable tablet 81 mg PO DAILY@0800 #90 tabs 10/08/24 03/17/25 Rx (Children's Aspirin) atorvastatin 40 mg tablet 40 mg PO DAILY #90 tabs 12/24/24 03/17/25 Rx clopidogrel 75 mg tablet (Plavix) 75 mg PO DAILY #90 tabs 12/24/24 03/17/25 Rx levothyroxine 25 mcg tablet 25 mcg PO DAILY #90 tabs 12/24/24 03/17/25 Rx metformin 500 mg tablet 500 mg PO DAILY #90 tabs 12/24/24 03/17/25 Rx trazodone 50 mg tablet See Rx Instructions .Route 12/24/24 03/17/25 Rx .COMPLEX #180 tabs bupropion HCl 100 mg tablet 150 mg (1.5 x 100 mg) PO BID #270 01/12/25 03/17/25 Rx tabs semaglutide (weight loss) 1 mg/0.5 See Rx Instructions .Route 02/12/25 03/17/25 Rx mL subcutaneous pen injector .COMPLEX #2 mL (Wegovy) losartan 25 mg tablet 25 mg PO DAILY #90 tabs 02/16/25 03/17/25 Rx Allergies Allergy/AdvReac Type Severity Reaction Status Date / Time peanut Allergy Severe Anaphylaxis Verified 03/17/25 07:09 Penicillins Allergy Mild Rash Verified 03/17/25 07:09 Vital Signs Vital Signs - 24 hr 03/17/25 07:25 Temperature 97.5 F L Pulse Rate 85 Respiratory Rate 16 Blood Pressure 126/82 Pulse Oximetry 99 Oxygen Delivery Room Air Exam Const: General: comfortable and no acute distress HENMT: Face/Nose/Sinus: Normal nares present Eyes: General: appearance normal, both eyes and all related structures Neck: Neck: no JVD Resp: Auscultation: clear to auscultation bilaterally Cardio: Rate: regular rate Rhythm: regular rhythm GI: Inspection: non-distended GI Palp: Yes Soft to palpation Skin: General skin exam: normal color Extrem: General: normal to inspection Psych: Mental Status: mental status grossly normal Assessment and Plan Assessment and plan (1) Screening for colon cancer: Code(s): Z12.11 - Encounter for screening for malignant neoplasm of colon Status: Acute Assessment and Plan: colonoscopy (2) Dysphagia: Qualifiers: Dysphagia type: unspecified Qualified Code(s): R13.10 - Dysphagia, unspecified Code(s): R13.10 - Dysphagia, unspecified Status: Acute Assessment and Plan: egd
--- NOTE | 2025-03-17 08:50 | SUR.OPER ---
EGD [id number]. Colonoscopy start time 08.
--- NOTE | 2025-03-17 09:11 | S_PTH ---
PATIENT: Sravan Peck LOC: LOCO Rob#:[id number] AGE/SX: 49/F ROOM: RE03/17/[address]: Nathen Bailey MD : [id number] BED: DIS: 03/17/2025 SPEC #: [id number] RECD: 03/17/25 10:00 STATUS: SANDRO ANDERS #: [id number] JAMILA: 03/17/25 09:[address]: Nathen Bailey DEPT: [facility] Surgical RECD BY: Zoraida Duff ENTERED: 03/17/25 10:01 SP TYPE: Surgical OTHR DR: Alejandra Lagos APRN Tissues: A - Esophageal Biopsy B - Esophageal Biopsy C - Gastric Biopsy Procedures: Hematoxylin and Eosin Stain Gross and Microscopic Level 4
[2025-03-17 09:13] VITALS: BP 96/52; PULSE 69; RESP 23; O2SAT 98
[2025-03-17 09:23] VITALS: BP 106/55; PULSE 74; RESP 20; O2SAT 100
[2025-03-17 09:33] VITALS: BP 98/54; PULSE 67; RESP 19; O2SAT 99
== END 2025-03-17 09:47 | disposition home or self-care (01) ==
PROVIDERS: Anesthesiology; PCP Nurse Practitioner Family; Referring Provider Nurse Practitioner Family; Visit Provider Internal Medicine Gastroenterology
PROC: 0DJ08ZZ Inspection of Upper Intestinal Tract, Via Natural or Artificial Opening Endoscopic (ICD-10-PCS; CPT 45378; principal; 2025-03-17 08:30)
DX: Z12.11 Encounter for screening for malignant neoplasm of colon (principal); K64.8 Other hemorrhoids; K22.2 Esophageal obstruction; Z79.85 Long-term (current) use of injectable non-insulin antidiabetic drugs
CPT/HCPCS: 45378; 43249; 43239; 82948; 88305; C1726; J2704; J7120